=== PATIENT | male | born 1940 | race Caucasian/White ===

== ENCOUNTER 2016-08-31 17:12 | Emergency (ER) | payer MEDICARE, OTHER ==
[2016-08-31 17:48] VITALS: BP 149/76; TEMP 99.2; O2SAT 90
--- NOTE | 2016-08-31 18:06 | ED.PDOC ---
History of Present Illness - General Chief Complaint: Respiratory Problem Stated Complaint: cough, congestion Time Seen by Provider: 08/31/16 18:05 Source: patient, RN notes reviewed, Vital Signs reviewed Exam Limitations: no limitations - History of Present Illness Initial Comments: Patient stated that he had been having cough and congestion not getting better for the last 3 weeks.Has history of cad,chf dm. Uses home o2 but as needed. Timing/Duration: other - 3 weeks Improving Factors: nothing Worsening Factors: nothing Associated Symptoms: denies symptoms Allergies/Adverse Reactions: Allergies Hydromorphone [From Dilaudid] Allergy (Verified 08/31/16 17:46) Morphine Allergy (Verified 08/31/16 17:46) Tetanus Toxoid Allergy (Verified 08/31/16 17:46) Home Medications: Ambulatory Orders Albuterol Sulfate Nebs [Proventil Nebs] 2.5 mg INH QID 06/16/15 Arformoterol Tartrate [Brovana] 15 mcg IN BID 06/16/15 Atorvastatin Calcium [Lipitor] 20 mg PO DAILY 06/16/15 Fenofibrate [Tricor] 134 mg PO DAILY 06/16/15 Furosemide [Lasix] 40 mg PO DAILY 06/16/15 Glipizide 10 mg PO BID 06/16/15 Insulin Detemir [Levemir Pen] 60 unit SUBCU BID 06/16/15 Lisinopril [Prinivil] 20 mg PO BID 06/16/15 Meclizine HCl 25 mg PO BID 06/16/15 Potassium Chloride Tab [Micro-K] 20 meq PO DAILY 06/16/15 Tiotropium [place] Monohydrate [Spiriva Handihaler] 18 mcg IN DAILY 06/16/15 Triamcinolone 0.1% Oint [Kenalog 0.1% Ointment] 1 applic TOP BID 07/18/15 Albuterol Sulfate Nebs [Proventil Nebs] 2.5 mg NEB RTQID #0 vial 07/22/15 Aspirin [Aspirin Childrens] 81 mg PO DAILY #0 07/22/15 Benzonatate Perles [Tessalon Perles] 200 mg PO BID #30 cap 08/31/16 Doxycycline Hyclate 100 mg PO BID #20 cap 08/31/16 predniSONE [Prednisone] 10 mg PO BID #14 tab 08/31/16 Review of Systems - Review of Systems Constitutional: States: no symptoms reported EENTM: States: nose congestion Respiratory: States: short of breath Cardiology: States: no symptoms reported Gastrointestinal/Abdominal: States: no symptoms reported Genitourinary: States: no symptoms reported Musculoskeletal: States: no symptoms reported Skin: States: no symptoms reported Neurological: States: no symptoms reported Endocrine: States: no symptoms reported Past Medical History (General) - Patient Medical History Hx Seizures: No Hx Stroke: Yes Hx Dementia: Yes Hx Asthma: Yes Hx of COPD: Yes Hx Cardiac Disorders: Yes - [place] x1, heart failure Hx Congestive Heart Failure: Yes Hx Pacemaker: No Hx Hypertension: Yes Hx Diabetes: Yes Hx MRSA: No Surgical History: other - cardiac stent ,elbow ,hip, knee - Vaccination History Hx Tetanus, Diphtheria Vaccination: No Hx Influenza Vaccination: Yes - 2016 Hx Pneumococcal Vaccination: Yes - Social History Hx Tobacco Use: Yes Hx Alcohol Use: No Hx Substance Use: No Hx Physical Abuse: No Hx Emotional Abuse: No - Activities of Daily Living Patient Lives Alone: No - family Grooming Ability: Independent Eating (Feeding) Ability: Independent Toileting Ability: Independent - Female History Patient : No - Triage Comment ED Triage Comment: Pt lives with his adult sister. Family Medical History - Family History Mother Family History: No Known Living Status: Hx Family Asthma: Yes Hx Cardiac Disease: Yes Hx Family Diabetes: Yes Father Family History: No Known Physical Exam - Physical Exam General Appearance: Alert, Comfortable, No apparent distress Eye Exam: bilateral normal Ears, Nose, Throat: hearing grossly normal, normal pharynx, nasal congestion Neck: non-tender, full range of motion, supple Respiratory: chest non-tender, decreased breath sounds Cardiovascular/Chest: normal peripheral pulses, regular rate, rhythm, no edema, no gallop, no JVD, no murmur Peripheral Pulses: radial,right: 2+, radial,left: 2+ Gastrointestinal/Abdominal: normal bowel sounds, non tender, soft Back Exam: normal inspection, no CVA tenderness, no vertebral tenderness Extremity: normal range of motion, non-tender, pedal edema Neurologic: no motor/sensory deficits, alert, normal mood/affect, oriented x 3 Skin Exam: normal color, warm/dry Lymphatic: no adenopathy Progress - Progress Progress: 08/31/16 19:25 - Results/Orders Results/Orders: Laboratory Results WBC 8.1 K/mm3 (4.8-10.8) 08/31/16 18:30 RBC 5.37 M/mm3 (4.70-6.10) 08/31/16 18:30 Hgb 15.2 gm/dL (14.0-18.0) 08/31/16 18:30 Hct 46.1 % (42.0-52.0) 08/31/16 18:30 MCV 85.8 fl (80.0-94.0) 08/31/16 18:30 MCH 28.3 pg (27.0-31.0) 08/31/16 18:30 MCHC 33.0 g/dL (33.0-37.0) 08/31/16 18:30 RDW 15.7 % (11.5-14.5) H 08/31/16 18:30 Plt Count 284 K/mm3 (130-400) 08/31/16 18:30 MPV 8.4 fl (7.40-10.4) 08/31/16 18:30 Absolute Neuts (auto) 4.10 K/uL (1.8-6.8) 08/31/16 18:30 Absolute Lymphs (auto) 2.80 K/uL (1.0-3.4) 08/31/16 18:30 Absolute Monos (auto) 0.70 K/uL (0.2-0.8) 08/31/16 18:30 Absolute Eos (auto) 0.50 K/uL (0.0-0.4) H 08/31/16 18:30 Absolute Basos (auto) 0.10 K/uL (0.0-0.1) 08/31/16 18:30 Neutrophils % 50.8 % (42.0-78.0) 08/31/16 18:30 Lymphocytes % 34.2 % (20.0-50.0) 08/31/16 18:30 Monocytes % 8.0 % (2.0-9.0) 08/31/16 18:30 Eosinophils % 5.6 % (1.0-5.0) H 08/31/16 18:30 Basophils % 1.4 % (0.0-2.0) 08/31/16 18:30 - EKG/XRAY/CT XRAY: chest - patchy infiltrates Departure - Departure Clinical Impression: Pneumonia, organism unspecified Qualifiers: Laterality: bilateral Lung location: lower lobe of lung Qualifier Code: (J16.8 ) Pneumonia due to other specified infectious organisms Time of Disposition: 19:40 Disposition: Discharge to Home or Self Care Condition: Good Departure Forms: ED Discharge - Pt. Copy, Patient Portal Self Enrollment Prescriptions: Doxycycline Hyclate 100 mg PO BID #20 cap predniSONE [Prednisone] 10 mg PO BID #14 tab Benzonatate Perles [Tessalon Perles] 200 mg PO BID #30 cap Home Medications: Ambulatory Orders Albuterol Sulfate Nebs [Proventil Nebs] 2.5 mg INH QID 06/16/15 Arformoterol Tartrate [Brovana] 15 mcg IN BID 06/16/15 Atorvastatin Calcium [Lipitor] 20 mg PO DAILY 06/16/15 Fenofibrate [Tricor] 134 mg PO DAILY 06/16/15 Furosemide [Lasix] 40 mg PO DAILY 06/16/15 Glipizide 10 mg PO BID 06/16/15 Insulin Detemir [Levemir Pen] 60 unit SUBCU BID 06/16/15 Lisinopril [Prinivil] 20 mg PO BID 06/16/15 Meclizine HCl 25 mg PO BID 06/16/15 Potassium Chloride Tab [Micro-K] 20 meq PO DAILY 06/16/15 Tiotropium [place] Monohydrate [Spiriva Handihaler] 18 mcg IN DAILY 06/16/15 Triamcinolone 0.1% Oint [Kenalog 0.1% Ointment] 1 applic TOP BID 07/18/15 Albuterol Sulfate Nebs [Proventil Nebs] 2.5 mg NEB RTQID #0 vial 07/22/15 Aspirin [Aspirin Childrens] 81 mg PO DAILY #0 07/22/15 Benzonatate Perles [Tessalon Perles] 200 mg PO BID #30 cap 08/31/16 Doxycycline Hyclate 100 mg PO BID #20 cap 08/31/16 predniSONE [Prednisone] 10 mg PO BID #14 tab 08/31/16 Additional Instructions: RETURN TO EMERGENCY ROOM NEEDED
[2016-08-31] MEDS ORDERED: methylPREDNISolone SODIUM SUC 125 MG/2 ML VIAL IM ONE (18:21)
--- NOTE | 2016-08-31 19:12 | RAD ---
EXAM DESCRIPTION: Chest,2 Views CLINICAL HISTORY: 76 years Male cough COMPARISON: 05/29/2016. FINDINGS: The cardiomediastinal silhouette appears unremarkable. Patchy infiltrates are visualized in the mid and lower lungs greater on the right. Questionable minimal pleural effusions. No pneumothorax. IMPRESSION: Patchy infiltrates in the lower lungs greater in the right which could be from pneumonia. Follow-up is recommended. Electronically signed by: Reynold Grullon MD 08/31/2016 7:11 PM [employer]
[2016-08-31] MEDS ORDERED: AZITHROMYCIN 250 MG TAB PO ONE (19:38)
[2016-08-31] MEDS ORDERED: cefTRIAXone SODIUM 1 GM VIAL IM ONE (19:38)
[2016-08-31] MEDS ORDERED: LIDOCAINE 1% 10 ML VIAL INJ ONE (19:53)
--- NOTE | 2016-09-09 00:20 | RAD ---
EXAM DESCRIPTION: Chest,2 Views CLINICAL HISTORY: 76 years Male cough COMPARISON: 05/29/2016. FINDINGS: The cardiomediastinal silhouette appears unremarkable. Patchy infiltrates are visualized in the mid and lower lungs greater on the right. Questionable minimal pleural effusions. No pneumothorax. IMPRESSION: Patchy infiltrates in the lower lungs greater in the right which could be from pneumonia. Follow-up is recommended. Electronically signed by: Reynold Grullon MD 08/31/2016 7:11 PM [employer]
== END 2016-08-31 20:21 | disposition home or self-care (01) ==
LOC: ER 17:12
DX: J16.8 Pneumonia due to other specified infectious organisms (principal); I11.0 Hypertensive heart disease with heart failure; I50.9 Heart failure, unspecified; J44.9 Chronic obstructive pulmonary disease, unspecified; F03.90 Unspecified dementia, unspecified severity, without behavioral disturbance, psychotic disturbance, mood disturbance, and anxiety; Z86.73 Personal history of transient ischemic attack (TIA), and cerebral infarction without residual deficits; I25.2 Old myocardial infarction; Z79.82 Long term (current) use of aspirin; Z88.6 Allergy status to analgesic agent; Z88.7 Allergy status to serum and vaccine; Z79.899 Other long term (current) drug therapy; Z79.4 Long term (current) use of insulin; Z98.61 Coronary angioplasty status
CPT/HCPCS: 36415; 71020; 85025; J0696; J2930; Q0144

== ENCOUNTER 2017-02-26 09:03 | Inpatient (IN) | payer MEDICARE, OTHER ==
[2017-02-26] MEDS ORDERED: SODIUM CHLORIDE 0.9% 1000ML 1,000 ML IVS ONE ×2 (09:29→10:54)
--- NOTE | 2017-02-26 09:58 | ED.PDOC ---
History of Present Illness - General Chief Complaint: General Stated Complaint: laid on floor all night Time Seen by Provider: 02/26/17 09:43 Source: patient Exam Limitations: clinical condition - History of Present Illness Initial Comments: Patient presents after he fell out of his chair and was too weak to get up. He says this has happened before. He has IDDM. He feels generalized weakness and mild left hip pain. Patient cannot verbalize any other complaint. Timing/Duration: unsure Severity: mild Improving Factors: nothing Worsening Factors: nothing Associated Symptoms: denies symptoms Allergies/Adverse Reactions: Allergies Hydromorphone [From Dilaudid] Allergy (Verified 08/31/16 17:46) Morphine Allergy (Verified 08/31/16 17:46) Tetanus Toxoid Allergy (Verified 08/31/16 17:46) Home Medications: Ambulatory Orders Albuterol Sulfate Nebs [Proventil Nebs] 2.5 mg INH QID 06/16/15 Arformoterol Tartrate [Brovana] 15 mcg IN BID 06/16/15 Atorvastatin Calcium [Lipitor] 20 mg PO DAILY 06/16/15 Fenofibrate [Tricor] 134 mg PO DAILY 06/16/15 Furosemide [Lasix] 40 mg PO DAILY 06/16/15 Glipizide 10 mg PO BID 06/16/15 Insulin Detemir [Levemir Pen] 60 unit SUBCU BID 06/16/15 Lisinopril [Prinivil] 20 mg PO BID 06/16/15 Meclizine HCl 25 mg PO BID 06/16/15 Potassium Chloride Tab [Micro-K] 20 meq PO DAILY 06/16/15 Tiotropium [place] Monohydrate [Spiriva Handihaler] 18 mcg IN DAILY 06/16/15 Triamcinolone 0.1% Oint [Kenalog 0.1% Ointment] 1 applic TOP BID 07/18/15 Albuterol Sulfate Nebs [Proventil Nebs] 2.5 mg NEB RTQID #0 vial 07/22/15 Aspirin [Aspirin Childrens] 81 mg PO DAILY #0 07/22/15 Benzonatate Perles [Tessalon Perles] 200 mg PO BID #30 cap 08/31/16 Doxycycline Hyclate 100 mg PO BID #20 cap 08/31/16 predniSONE 10 mg PO BID #14 tab 08/31/16 Review of Systems - Review of Systems Constitutional: States: see HPI EENTM: States: no symptoms reported Respiratory: States: no symptoms reported Cardiology: States: no symptoms reported Gastrointestinal/Abdominal: States: no symptoms reported Genitourinary: States: no symptoms reported Musculoskeletal: States: see HPI Skin: States: no symptoms reported Neurological: States: no symptoms reported Endocrine: States: no symptoms reported Hematologic/Lymphatic: States: no symptoms reported Unable to Obtain Due To: clinical condition Past Medical History (General) - Patient Medical History Hx Seizures: No Hx Stroke: Yes Hx Dementia: Yes Hx Asthma: Yes Hx of COPD: Yes Hx Cardiac Disorders: Yes - [place] x1, heart failure Hx Congestive Heart Failure: Yes Hx Pacemaker: No Hx Hypertension: Yes Hx Diabetes: Yes Hx MRSA: No - Vaccination History Hx Tetanus, Diphtheria Vaccination: No Hx Influenza Vaccination: Yes Hx Pneumococcal Vaccination: Yes - Social History Hx Tobacco Use: Yes Hx Alcohol Use: No Hx Substance Use: No Hx Physical Abuse: No Hx Emotional Abuse: No - Female History Patient : No Family Medical History - Family History Mother Family History: No Known Living Status: Hx Family Asthma: Yes Hx Cardiac Disease: Yes Hx Family Diabetes: Yes Father Family History: No Known Physical Exam - Physical Exam General Appearance: No apparent distress Eye Exam: bilateral normal Ears, Nose, Throat: normal ENT inspection Neck: non-tender, full range of motion, supple Respiratory: lungs clear Cardiovascular/Chest: regular rate, rhythm Gastrointestinal/Abdominal: normal bowel sounds, non tender, soft Neurologic: scrum product owner II-XII nml as tested, no motor/sensory deficits Skin Exam: normal color Progress - Progress Progress: Presenting blood glucose wsa 818. No ketones in the urine. Patient was given a bolus of 10 units human insulin and one liter NS as well as 10 units per hour human insulin. Original potassium was 5.8. Follow up potassium was 4.7 so 20 meq potassium chloride over 2 hours was started. Patient was still hyperosmolar so NS was continued. Once glucose was 248, D5 NS with 20 meq potassium chloride at 250 ml/hour was started. Insulin drip was stopped and 10 units human insulin SQ was given and patient admitted to the floor. 02/26/17 15:05 Laboratory Tests 02/26/17 02/26/17 02/26/17 09:35 09:35 11:05 WBC 9.5 RBC 5.15 Hgb 15.2 Hct 46.4 MCV 90.1 MCH 29.4 MCHC 32.6 L RDW 13.0 Plt Count 295 MPV 9.9 Absolute Neuts (auto) 6.40 Absolute Lymphs (auto) 2.00 Absolute Monos (auto) 0.80 Absolute Eos (auto) 0.20 Absolute Basos (auto) 0.10 Neutrophils % 67.4 Lymphocytes % 21.0 Monocytes % 8.2 Eosinophils % 2.0 Basophils % 1.4 Sodium 129 L 130 L Potassium 5.8 H 4.7 Chloride 92 L 96 L Carbon Dioxide 21 21 Anion Gap 21.8 H 17.7 BUN 100 H 94 H Creatinine 3.09 H 2.86 H BUN/Creatinine Ratio 32.4 H 32.9 H POC Glucose Random Glucose 818 H* 733 H* Serum Osmolality 330.5 H* Not Reportable Calcium 9.6 9.1 Total Bilirubin 1.1 H AST 18 ALT 14 Alkaline Phosphatase 160 H Serum Total Protein 7.8 Albumin 3.9 Globulin 3.9 H Albumin/Globulin Ratio 1.0 L Urine Color Urine Appearance Urine pH Ur Specific [place] Urine Protein Urine Glucose (UA) Urine Ketones Urine Blood Urine Nitrite Urine Bilirubin Urine Urobilinogen Ur Leukocyte Esterase Urine RBC Urine WBC Ur Epithelial Cells Amorphous Sediment Urine Bacteria 02/26/17 02/26/17 02/26/17 11:06 12:12 13:50 WBC RBC Hgb Hct MCV MCH MCHC RDW Plt Count MPV Absolute Neuts (auto) Absolute Lymphs (auto) Absolute Monos (auto) Absolute Eos (auto) Absolute Basos (auto) Neutrophils % Lymphocytes % Monocytes % Eosinophils % Basophils % Sodium 134 L 136 Potassium 4.8 4.5 Chloride 99 L 102 Carbon Dioxide 22 21 Anion Gap 17.8 17.5 BUN 89 H 89 H Creatinine 2.74 H 2.57 H BUN/Creatinine Ratio 32.5 H 34.6 H POC Glucose Random Glucose 521 H* 355 H D Serum Osmolality 318.6 H 313.5 H Calcium 9.1 9.3 Total Bilirubin AST ALT Alkaline Phosphatase Serum Total Protein Albumin Globulin Albumin/Globulin Ratio Urine Color Yellow Urine Appearance Clear Urine pH 5.0 Ur Specific [place] <= 1.005 Urine Protein Negative Urine Glucose (UA) 500 H Urine Ketones Negative Urine Blood Trace-lysed H Urine Nitrite Negative Urine Bilirubin Negative Urine Urobilinogen 0.2 Ur Leukocyte Esterase Negative Urine RBC 0-1 Urine WBC 0 Ur Epithelial Cells 0-1 Amorphous Sediment Trace Urine Bacteria 0 02/26/17 14:46 WBC RBC Hgb Hct MCV MCH MCHC RDW Plt Count MPV Absolute Neuts (auto) Absolute Lymphs (auto) Absolute Monos (auto) Absolute Eos (auto) Absolute Basos (auto) Neutrophils % Lymphocytes % Monocytes % Eosinophils % Basophils % Sodium Potassium Chloride Carbon Dioxide Anion Gap BUN Creatinine BUN/Creatinine Ratio POC Glucose 248 H Random Glucose Serum Osmolality Calcium Total Bilirubin AST ALT Alkaline Phosphatase Serum Total Protein Albumin Globulin Albumin/Globulin Ratio Urine Color Urine Appearance Urine pH Ur Specific [place] Urine Protein Urine Glucose (UA) Urine Ketones Urine Blood Urine Nitrite Urine Bilirubin Urine Urobilinogen Ur Leukocyte Esterase Urine RBC Urine WBC Ur Epithelial Cells Amorphous Sediment Urine Bacteria Departure - Departure Clinical Impression: Hyperglycemia Clinical Impression: (Ruled Out): Type 1 diabetes mellitus with hyperosmolarity without nonketotic hyperglycemic hyperosmolar coma Disposition: Admit Patient Condition: Good Departure Forms: ED Discharge - Pt. Copy, Patient Portal Self Enrollment Diet: other - as per hospitalist Activity: as per physical therapy Referrals: Brian Yi MD [Primary Care Provider] - 1-2 Weeks Home Medications: Ambulatory Orders Albuterol Sulfate Nebs [Proventil Nebs] 2.5 mg INH QID 06/16/15 Arformoterol Tartrate [Brovana] 15 mcg IN BID 06/16/15 Atorvastatin Calcium [Lipitor] 20 mg PO DAILY 06/16/15 Fenofibrate [Tricor] 134 mg PO DAILY 06/16/15 Furosemide [Lasix] 40 mg PO DAILY 06/16/15 Glipizide 10 mg PO BID 06/16/15 Insulin Detemir [Levemir Pen] 60 unit SUBCU BID 06/16/15 Lisinopril [Prinivil] 20 mg PO BID 06/16/15 Meclizine HCl 25 mg PO BID 06/16/15 Potassium Chloride Tab [Micro-K] 20 meq PO DAILY 06/16/15 Tiotropium [place] Monohydrate [Spiriva Handihaler] 18 mcg IN DAILY 06/16/15 Triamcinolone 0.1% Oint [Kenalog 0.1% Ointment] 1 applic TOP BID 07/18/15 Albuterol Sulfate Nebs [Proventil Nebs] 2.5 mg NEB RTQID #0 vial 07/22/15 Aspirin [Aspirin Childrens] 81 mg PO DAILY #0 07/22/15 Benzonatate Perles [Tessalon Perles] 200 mg PO BID #30 cap 08/31/16 Doxycycline Hyclate 100 mg PO BID #20 cap 08/31/16 predniSONE 10 mg PO BID #14 tab 08/31/16
--- NOTE | 2017-02-26 10:14 | RAD ---
EXAM DESCRIPTION: Hip,Left 2 Views CLINICAL HISTORY: 76 years,Male,pain-slid out of recliner onto floor COMPARISON: None FINDINGS: The left hip demonstrates no fractures or dislocations.. The joint spaces mildly loss in the axial direction with mild ossified changes.. The included pelvis not seen well but otherwise unremarkable.. There is large bony overgrowth and what it appears be old fracture or avulsion of the left ischio tuberosity. Which is unchanged. IMPRESSION: Mild left hip osteoarthritic changes with no acute findings. Old fracture or avulsion fracture of the left ischio tuberosity stable. Electronically signed by: Tomi Avitia MD 02/26/2017 10:13 AM CDT
[2017-02-26] MEDS ORDERED: INSULIN, REG.(HUMAN) 100 U/ML VIAL IV ONE (10:24)
[2017-02-26] MEDS ORDERED: INSULIN, REG.(HUMAN) 250 UNITS in SODIUM CHL 0.9% 250ML (AVIVA) 247.5 ML IVPB SCH ×2 (10:30)
[2017-02-26] MEDS ORDERED: SODIUM CHL 0.9% 250ML (AVIVA) 250 ML IVPB ONE (10:37)
[2017-02-26] MEDS ORDERED: KCL 20MEQ/WATER FOR INJ 100ML 20 MEQ in PREMIX BAG 1 BAG IVPB ONE ×2 (11:29→14:52)
[2017-02-26] MEDS ORDERED: KCL 20MEQ/WATER FOR INJ 100ML 100 ML IVPB ONE (11:35)
[2017-02-26] MEDS ORDERED: SODIUM CHLORIDE 0.9% 1000ML 1,000 ML IVS PRN (12:53)
[2017-02-26] MEDS ORDERED: KCL 20MEQ/D5NS 1,000 ML IVS PRN (14:56)
[2017-02-26] MEDS ORDERED: KCL 20MEQ/D5NS 1,000 ML IVS ONE (14:57)
[2017-02-26] MEDS ORDERED: INSULIN, REG.(HUMAN) 100 U/ML VIAL SUBCU ONE (14:57)
--- NOTE | 2017-02-26 15:57 | HP ---
SUPERVISING PHYSICIAN: Zeke Gonzalez M.D. CHIEF COMPLAINT: Weakness and high blood sugars. HISTORY OF PRESENT ILLNESS: The patient presented to the Emergency Room today after he was found down on most of the night. He has poorly controlled diabetes mellitus type 2. Yesterday, he felt extremely weak and his blood sugar was very elevated. He said he couldn't walk or he couldn't talk yesterday and ended up in the floor. He came to the Emergency Room today and his CBC was basically within normal limits, but his chemistry showed sodium 129 , potassium 5.8, chloride 92, carbon dioxide 21 and anion gap 21.8, BUN 100, creatinine 3.09. Random glucose was 818 with serum osmolality 330.5. Bilirubin 1.1, alkaline phosphatase 160, globulin 3.9 and albumin 1.0. He was given a total of 4 liters of fluids in the Emergency Room and started on an insulin drip. Over the next several hours his blood sugar came down to 733, 521 , 355 and finally at 248. His anion gap normalized to 17.5 on admission to the floor as well as his BUN was 89 and creatinine was 2.57. His fluids were changed to D5 NS with 20 of K at 1500 and his insulin drip was stopped. He was given 10 units of subcutaneous insulin and he was sent to the floor. PAST MEDICAL HISTORY: 1. Congestive heart failure of unknown etiology. 2. Coronary artery disease. 3. Dementia. 4. Diabetes mellitus type 2 poorly controlled. 5. Essential hypertension. 6. Hyperlipidemia. 7. Peripheral vascular disease. 8. DEMARCO. 9. Idiopathic pulmonary fibrosis. 10. History of myocardial infarction. 11. Chronic obstructive pulmonary disease. 12. Benign prostatic hypertrophy. PAST SURGICAL HISTORY: 1. Right hip replacement. 2. Bilateral elbow surgeries. 3. Bilateral knee replacements. OUTPATIENT MEDICATIONS: Per the EMR and awaiting verification. ALLERGIES: NO KNOWN DRUG ALLERGIES. SOCIAL HISTORY: He is . He lives with his sister. He has 2 children. He quit smoking about 20 years ago. He denies any ETOH or illicit drug use. REVIEW OF SYSTEMS: Positive for fatigue. Denies fever or weight changes. HEENT: Denies sinus symptoms, ear pain, vision changes or sore throat. RESPIRATORY: Denies shortness of breath, coughing or wheezing. CARDIAC: Denies chest pains, palpitations or tachycardia. ABDOMEN: Denies abdominal pain, nausea or vomiting, diarrhea or constipation. GENITOURINARY: Denies hematuria, polyuria or dysuria. MUSCULOSKELETAL: He complains of mild left hip pain. NEUROLOGIC: Complains of weakness and some dizziness. Denies seizures. PHYSICAL EXAMINATION: VITAL SIGNS: He is afebrile, heart rate has gone as high as 96 and is now 82, blood pressure 100/66, respiratory rate 18, O2 sat is 94% on 3 liters nasal cannula. GENERAL: This is a 76 year-old male patient who is lying in his hospital bed. He is in no acute distress. HEENT: Normocephalic and atraumatic. Pupils are equal and reactive. Oropharynx is clear. Oral mucous membrane are dry. NECK: Supple without mass. CHEST: Clear to auscultation bilaterally, somewhat diminished at the bases. There is equal rise and fall of the chest with inspiration and expiration. CARDIOVASCULAR: Regular rate and rhythm. ABDOMEN: Rounded, slightly firm but non-tender. Bowel sounds are positive. EXTREMITIES: No cyanosis, clubbing or edema. SKIN: Slightly poor skin turgor with some mild tenting, otherwise it is warm and dry. NEUROLOGIC: He is awake, alert and oriented times three. LABORATORY: As per the History of Present Illness. Hip x-ray shows mild left hip osteoarthritic changes with no acute findings and an old fracture or avulsion fracture of the left ischial tuberosity, but that is stable. All other labs and films have been reviewed via the EMR. ASSESSMENT: 1. Hyperosmolar hyperglycemic state. 2. Elevated blood glucose of 818 on admission. 3. Dehydration. 4. Acute on chronic renal failure. 5. Diabetes mellitus type 2 uncontrolled. 6. Chronic obstructive pulmonary disease. 7. Hypertension. 8. Hyperlipidemia. PLAN: We will admit the patient to the hospital. At this point I am going to do every 4 hour BMPs with every 4 hour Accu Cheks and sliding scale coverage. Will change his fluid as his electrolytes indicate. Will do a hemoglobin A1c as well as restart his home medicines with the exception of his Lasix. Will give him breathing treatments. I have ordered some AM labs. Restart his regular insulin tomorrow after he is well hydrated. He is presently on D5 half NS with 20 of potassium at 200. We will continue to monitor him closely and follow as needed. Dr. Gonzalez is the collaborating physician available for consultation. [facility][id number]
[2017-02-26] MEDS ORDERED: KCL 20MEQ/D5 1/2NS 1,000 ML IVS PRN (17:16)
[2017-02-26] MEDS ORDERED: GLUCAGON INJ 1 MG VIAL SUBCU PRN (17:25)
[2017-02-26] MEDS ORDERED: DEXTROSE 50% 25 GM/50 ML SYG IV PRN (17:25)
[2017-02-26] MEDS ORDERED: KCL 20MEQ/D5 1/2NS 1,000 ML IVS ONE (17:30)
[2017-02-26] MEDS ORDERED: INSULIN LISPRO 100 UNITS/ML PEN SUBCU SCH (18:00)
[2017-02-26] MEDS ORDERED: INSULIN LISPRO 100 UNITS/ML PEN SUBCU ONE (18:51)
[2017-02-26] MEDS ORDERED: DOCUSATE SODIUM 100 MG CAP PO PRN (19:38)
[2017-02-26] MEDS ORDERED: SODIUM CHLORIDE 0.9% (FLUSH) 10 ML SYG IV PRN (19:43)
[2017-02-26] MEDS ORDERED: HYDROcodone 5MG/APAP 325MG 1 EA TAB PO PRN (19:45)
[2017-02-26] MEDS ORDERED: ALBUTEROL SULFATE 2.5 MG/3 ML VIAL NEB PRN (19:45)
[2017-02-26] MEDS ORDERED: ONDANSETRON INJ 4 MG/2 ML VIAL IV PRN (19:45)
[2017-02-26] MEDS ORDERED: ENOXAPARIN SODIUM 40 MG/0.4 ML SYG SUBCU SCH (20:00)
[2017-02-26] MEDS ORDERED: PANTOPRAZOLE SODIUM IV 40 MG VIAL IV SCH (20:00)
[2017-02-26] MEDS: IV SET AND CAP CHANGE INJ INJ SCH (20:23)
[2017-02-26] MEDS: INSULIN LISPRO 100 UNITS/ML PEN SUBCU SCH (20:23)
[2017-02-26] MEDS ORDERED: ENOXAPARIN SODIUM 30 MG/0.3 ML SYG SUBCU SCH (20:30)
[2017-02-26] MEDS: LISINOPRIL 10 MG TAB PO SCH (20:58)
[2017-02-26] MEDS: GABAPENTIN 300 MG CAP PO SCH (20:58)
[2017-02-26] MEDS: MECLIZINE HCL 12.5 MG TAB PO SCH (20:58)
[2017-02-26] MEDS: ATORVASTATIN 20 MG TAB PO SCH (20:58)
[2017-02-26] MEDS: POTASSIUM CHLORIDE 10 MEQ TAB PO SCH (20:58)
[2017-02-26] MEDS ORDERED: FENOFIBRATE 134 MG PO SCH (21:00)
[2017-02-26] MEDS: ALBUTEROL SULFATE 2.5 MG/3 ML VIAL NEB SCH (22:50)
[2017-02-26] MEDS ORDERED: SODIUM CHLORIDE 0.9% 1000ML 1,000 ML ONE (22:56)
[2017-02-26] MEDS: SODIUM CHLORIDE 0.9% 1000ML 1,000 ML IVS PRN (22:58)
[2017-02-27] MEDS: INSULIN LISPRO 100 UNITS/ML PEN SUBCU SCH ×5 (00:15→21:30)
[2017-02-27] MEDS ORDERED: SODIUM CHLORIDE 0.9% 1000ML 1,000 ML ONE (03:53)
[2017-02-27] MEDS: SODIUM CHLORIDE 0.9% 1000ML 1,000 ML IVS PRN (03:55)
[2017-02-27] MEDS: POTASSIUM CHLORIDE 10 MEQ TAB PO SCH (08:30)
[2017-02-27] MEDS: LISINOPRIL 10 MG TAB PO SCH ×2 (08:30→20:40)
[2017-02-27] MEDS: ASPIRIN (CHEWABLE) 81 MG TAB PO SCH (08:30)
[2017-02-27] MEDS ORDERED: KCL 20MEQ/D5 1/2NS 1,000 ML IVS PRN (08:46)
[2017-02-27] MEDS: ALBUTEROL SULFATE 2.5 MG/3 ML VIAL NEB SCH ×4 (09:01→20:40)
[2017-02-27] MEDS: PANTOPRAZOLE SODIUM TAB 40 MG PO SCH (12:30)
[2017-02-27] MEDS: SODIUM CHLORIDE 0.9% (FLUSH) 10 ML SYG IV SCH ×2 (12:30→20:41)
[2017-02-27] MEDS ORDERED: SODIUM CHLORIDE 0.9% 1000ML 1,000 ML IVS PRN (16:42)
[2017-02-27] MEDS ORDERED: POTASSIUM CHLORIDE 10 MEQ TAB PO SCH (17:00)
[2017-02-27] MEDS: TIOTROPIUM INHALER INH SCH (17:35)
[2017-02-27] MEDS: INSULIN GLARGINE 80 UNIT SC SCH (17:55)
[2017-02-27] MEDS ORDERED: FENOFIBRIC ACID 135 MG CAP ONE (19:29)
[2017-02-27] MEDS ORDERED: ENOXAPARIN SODIUM 40 MG/0.4 ML SYG SUBCU ONE (19:30)
--- NOTE | 2017-02-27 19:33 | PN ---
DATE: 02/27/17 SUPERVISING PHYSICIAN: Zeke Gonzalez M.D. SUBJECTIVE: The patient is sitting up in his hospital bed. He denies any chest pain, nausea, vomiting or shortness of breath. He does complain that he cannot walk and he still continues to feel weak. He tolerated his food without any problem. OBJECTIVE: VITAL SIGNS: He is afebrile, heart rate 96, blood pressure 146/74, respiratory rate 18, O2 sat is 94% on 3 liters nasal cannula. RESPIRATORY: Clear to auscultation bilaterally. CARDIAC: Regular rate and rhythm. ABDOMEN: Rounded, it is slightly firm but non-tender. Bowel sounds are positive. EXTREMITIES: No cyanosis, clubbing or edema. NEUROLOGIC: He is awake, alert and oriented times three. LABORATORY: WBCs are 7.4, [id number], hematocrit 38.3. Sodium has ranged between 139 and 196, potassium has ranged between 5 and 5.5, chloride 107, carbon dioxide 22, BUN at his 4:00 PM lab result is 58 and creatinine 1.84, glucose has run between 248 and 515, his last one being 515. Serum osmolality 311.4. All other labs and films have been reviewed via the EMR. ASSESSMENT: 1. Hyperosmolar hyperglycemic state. 2. Elevated blood glucose of 818 on admission. 3. Dehydration. 4. Acute on chronic renal failure. 5. Diabetes mellitus type 2, uncontrolled. 6. Chronic obstructive pulmonary disease. 7. Hypertension. 8. Hyperlipidemia. PLAN: We will continue present supportive care. His blood glucoses have been up and down over the last 24 hours. He continues to be a little dehydrated. He has received about 7 liters of fluids but I will give him 1 more liter of fluids and we will give his Toujeo long acting insulin this evening and restart it in the morning routinely as he takes it at home. I am also going to give him 15 units of NovoLog insulin this evening and will recheck his BMP at 2100. His home medications have been restarted. I will order physical therapy tomorrow to evaluate his strength as he says he cannot walk. Will hopefully be able to discharge him home with close followup with Dr. Yi once his electrolytes have been corrected and his insulin has been adjusted. Dr. Gonzalez is the collaborating physician and available for consultation. #[id number] and [id number]
[2017-02-27] MEDS: ATORVASTATIN 20 MG TAB PO SCH (20:40)
[2017-02-27] MEDS: MECLIZINE HCL 12.5 MG TAB PO SCH (20:40)
[2017-02-27] MEDS: ENOXAPARIN SODIUM 40 MG/0.4 ML SYG SUBCU SCH (20:40)
[2017-02-27] MEDS: GABAPENTIN 300 MG CAP PO SCH (20:40)
[2017-02-27] MEDS: FENOFIBRIC ACID 135 MG CAP PO SCH (20:41)
[2017-02-28] MEDS ORDERED: INSULIN LISPRO 100 UNITS/ML PEN SUBCU ONE (00:11)
[2017-02-28] MEDS: PANTOPRAZOLE SODIUM TAB 40 MG PO SCH (06:00)
[2017-02-28] MEDS: TIOTROPIUM INHALER INH SCH (08:15)
[2017-02-28] MEDS: ALBUTEROL SULFATE 2.5 MG/3 ML VIAL NEB SCH ×4 (08:15→19:58)
[2017-02-28] MEDS: INSULIN LISPRO 100 UNITS/ML PEN SUBCU SCH ×4 (08:55→20:51)
[2017-02-28] MEDS: ASPIRIN (CHEWABLE) 81 MG TAB PO SCH (08:58)
[2017-02-28] MEDS: LISINOPRIL 10 MG TAB PO SCH ×2 (08:58→20:52)
[2017-02-28] MEDS: INSULIN GLARGINE 80 UNIT SC SCH (08:59)
[2017-02-28] MEDS: SODIUM CHLORIDE 0.9% (FLUSH) 10 ML SYG IV SCH ×2 (09:00→20:52)
--- NOTE | 2017-02-28 18:12 | PN ---
DATE: 02/28/17 SUPERVISING PHYSICIAN: Zeke Gonzalez M.D. SUBJECTIVE: The patient is sitting on the side of his bed. He just had his bath. He has had no complaints of nausea, vomiting, diarrhea or constipation. He actually feels much improved today. I had a discussion at length with the Rug Touch Up Painter. We will consider senior care placement after discharge. OBJECTIVE: VITAL SIGNS: He is afebrile, heart rate 93, blood pressure 123/70, respiratory rate 16, O2 sat is 94% on 3 liters nasal cannula. RESPIRATORY: Essentially clear to auscultation bilaterally. CARDIAC: Regular rate and rhythm. ABDOMEN: Rounded, slightly firm but non-tender. Bowel sounds are positive. EXTREMITIES: No cyanosis, clubbing or edema. NEUROLOGIC: He is awake , alert and oriented times three. LABORATORY: WBCs are 8.5, hemoglobin and hematocrit are stable at 12.9 and 39.2. Electrolytes are within normal limits with BUN and creatinine improving to 42 and 1.64. Glucose has run between 166 and 536. Serum osmolality is now 299.2. Hemoglobin A1c is 14.5. All other lab and films have been reviewed via the EMR. ASSESSMENT: 1. Hyperosmolar hyperglycemic state that has improved after 8 plus liters of fluids and insulin administration. 2. Elevated blood glucose of 818 on admission. 3. Diabetes mellitus type 2, uncontrolled with a hemoglobin A1c of 14.5. 4. Dehydration that has resolved. 5. Acute on chronic renal failure that has improved. 6. Chronic obstructive pulmonary disease. 7. Hypertension. 8. Hyperlipidemia. PLAN: We will continue present supportive care. I have ordered routine lab for in the morning. Jaylyn Pearson, our Rug Touch Up Painter, spoke to the patient at length about discharge to a senior care, and given his current physical state it probably would benefit him to be in a termite treater care facility. He has been in [facility] in the past. At this point, I believe that is where he would like to go. There may have to be some adjustment to a sliding scale or his long-acting insulin as his last blood sugar was 302, but we will monitor that closely. Encourage good pulmonary hygiene. He has walked in the halls several times with Physical Therapy. We will monitor his closely and follow as needed. Dr. Gonzalez is the collaborating physician and available for consultation. #[id number] [facility]
[2017-02-28] MEDS: ATORVASTATIN 20 MG TAB PO SCH (20:51)
[2017-02-28] MEDS: ENOXAPARIN SODIUM 40 MG/0.4 ML SYG SUBCU SCH (20:51)
[2017-02-28] MEDS: MECLIZINE HCL 12.5 MG TAB PO SCH (20:51)
[2017-02-28] MEDS: GABAPENTIN 300 MG CAP PO SCH (20:52)
[2017-02-28] MEDS: FENOFIBRIC ACID 135 MG CAP PO SCH (20:52)
[2017-03-01] MEDS: PANTOPRAZOLE SODIUM TAB 40 MG PO SCH (06:08)
[2017-03-01] MEDS: INSULIN LISPRO 100 UNITS/ML PEN SUBCU SCH ×5 (07:11→21:10)
[2017-03-01] MEDS: TIOTROPIUM INHALER INH SCH (08:35)
[2017-03-01] MEDS: ALBUTEROL SULFATE 2.5 MG/3 ML VIAL NEB SCH ×4 (08:35→19:30)
[2017-03-01] MEDS: SODIUM CHLORIDE 0.9% (FLUSH) 10 ML SYG IV SCH ×2 (08:38→20:42)
[2017-03-01] MEDS: ASPIRIN (CHEWABLE) 81 MG TAB PO SCH (08:38)
[2017-03-01] MEDS: LISINOPRIL 10 MG TAB PO SCH ×2 (08:38→20:41)
[2017-03-01] MEDS: INSULIN GLARGINE 80 UNIT SC SCH (08:39)
--- NOTE | 2017-03-01 20:12 | PN ---
DATE: 03/01/17 SUPERVISING PHYSICIAN: Zeke Gonzalez M.D. SUBJECTIVE: The patient is sitting on the edge of the bed. Reports that he continues to have improvements. He has not had any nausea or vomiting. He remains afebrile. OBJECTIVE: VITAL SIGNS: Temperature 98.7, pulse 94, blood pressure 103/64, respirations 18, satting 99% on nasal cannula at 2 liters at rest. I's and O's show a negative balance of 280 with 1345 in, 1625 out. Weight 100.9 kg. CHEST : Lungs are clear to auscultation bilaterally. HEART: Regular rate and rhythm. ABDOMEN: Soft, non-tender Positive bowel sounds. EXTREMITIES: No clubbing, cyanosis or edema. NEUROLOGIC: He is alert and oriented times three. LABORATORY: White count 9.2, hemoglobin 13.3, hematocrit 39.4, platelet count 271,000. Differential shows to be without a left shift. Chemistries show normal electrolytes with potassium 4.6, BUN remains elevated at 34 although showing continued improvement. Creatinine is down to 1.49. Blood sugars are showing a little better control at being since 5:00 this morning 140 to 290, it was showing high 300s the previous 12 hours showing some stabilization. Serum osmolality is 291 which is showing continuation of improvement from admission. Liver functions show to be within normal limits. ASSESSMENT: 1. Hyperosmolar hyperglycemic state showing continuation of improvement after aggressive fluid management and insulin regimen with initial blood sugar on admission at 818, now showing to be stable needing further management. 2. Diabetes mellitus type 2, uncontrolled as noted with hemoglobin A1c of 14.5. 3. Severe dehydration secondary to #1. 4. Acute on chronic renal failure from prerenal azotemia state secondary to #1 showing good improvement after IV fluids. 5. Chronic obstructive pulmonary disease. 6. Hypertension. 7. Hyperlipidemia. PLAN: Will continue to monitor blood sugars and adjust his insulin regimen as needed. He is taking adequate p.o. fluids at this point. We are awaiting final placement at [facility] which is in final planning stages with anticipation of discharging Friday. Will continue with aggressive pulmonary hygiene and physical therapy. Until discharge, will continue to monitor and treat appropriately. [facility][id number] [facility]
[2017-03-01] MEDS: GABAPENTIN 300 MG CAP PO SCH (20:42)
[2017-03-01] MEDS: FENOFIBRIC ACID 135 MG CAP PO SCH (20:42)
[2017-03-01] MEDS: MECLIZINE HCL 12.5 MG TAB PO SCH (20:42)
[2017-03-01] MEDS: ENOXAPARIN SODIUM 40 MG/0.4 ML SYG SUBCU SCH (20:43)
[2017-03-01] MEDS: ATORVASTATIN 20 MG TAB PO SCH (20:43)
[2017-03-01] MEDS: IV SET AND CAP CHANGE INJ INJ SCH (21:14)
[2017-03-02] MEDS: PANTOPRAZOLE SODIUM TAB 40 MG PO SCH (05:57)
[2017-03-02] MEDS: INSULIN LISPRO 100 UNITS/ML PEN SUBCU SCH ×7 (07:15→20:55)
[2017-03-02] MEDS: LISINOPRIL 10 MG TAB PO SCH ×2 (08:35→20:52)
[2017-03-02] MEDS: SODIUM CHLORIDE 0.9% (FLUSH) 10 ML SYG IV SCH ×2 (08:35→20:51)
[2017-03-02] MEDS: ASPIRIN (CHEWABLE) 81 MG TAB PO SCH (08:35)
[2017-03-02] MEDS: INSULIN GLARGINE 80 UNIT SC SCH (08:36)
[2017-03-02] MEDS: TIOTROPIUM INHALER INH SCH (08:39)
[2017-03-02] MEDS: ALBUTEROL SULFATE 2.5 MG/3 ML VIAL NEB SCH ×4 (08:39→20:33)
--- NOTE | 2017-03-02 13:58 | PN ---
DATE: 03/02/17 SUBJECTIVE: The patient remains afebrile. He has had no nausea, vomiting, diarrhea. He has been encouraged to ambulate if possible, at least get to the bedside chair for meals. OBJECTIVE: VITAL SIGNS: Temperature 97.6, pulse 87, blood pressure 124/74, respirations 18 , saturation 98% on nasal cannula at rest. I&O: negative balance of 350 with 1050 in and 1400 out. He has had several bowel movements. Weight 100.7 kg. CHEST: Lungs clear to auscultation. HEART: Regular rate and rhythm. ABDOMEN: Obese but soft with positive bowel sounds, non-tender. EXTREMITIES: No cyanosis, clubbing, or edema. NEUROLOGIC: Alert and oriented x 3 LABORATORY: Chemistries today show normal electrolytes with potassium 3.9, BUN 32, continues to show improvement with creatinine now stabilized at 1.5. Blood sugars still remain elevated but are becoming better controlled ranging from 127 to 330. Calcium 8.8. ASSESSMENT: 1. Hyperosmolar hyperglycemic state on admission requiring aggressive fluid management and insulin regimen modification with initial blood sugar on admission at 818, showing better stabilization of blood sugars with continued needing further management. 2. Diabetes mellitus type 2, uncontrolled as noted with hemoglobin A1c of 14.5. 3. Severe dehydration secondary to #1 resolved with aggressive fluid management. 4. Acute on chronic renal failure from prerenal azotemia state secondary to #1 and underlying dehydration showing continued improvement and stabilization of creatinine after IV fluid replacement and better control of blood sugars. 5. Chronic obstructive pulmonary disease, stable. 6. Hypertension. 7. Hyperlipidemia. . PLAN: The patient's blood sugar is still elevated. I did add 5 units of insulin AC as well as sliding scale along with his daily insulin regimen to include Toujeo. Anticipate he will be discharged in the morning to [facility] once those arrangements have been finalized. Until then, we will continue to monitor and treat appropriately. #[id number] [facility]
[2017-03-02] MEDS: ATORVASTATIN 20 MG TAB PO SCH (20:52)
[2017-03-02] MEDS: MECLIZINE HCL 12.5 MG TAB PO SCH (20:52)
[2017-03-02] MEDS: ENOXAPARIN SODIUM 40 MG/0.4 ML SYG SUBCU SCH (20:52)
[2017-03-02] MEDS: FENOFIBRIC ACID 135 MG CAP PO SCH (20:52)
[2017-03-02] MEDS: GABAPENTIN 300 MG CAP PO SCH (20:52)
[2017-03-03] MEDS: PANTOPRAZOLE SODIUM TAB 40 MG PO SCH (06:07)
[2017-03-03] MEDS: INSULIN LISPRO 100 UNITS/ML PEN SUBCU SCH ×4 (08:37→11:29)
[2017-03-03] MEDS: INSULIN GLARGINE 80 UNIT SC SCH (09:00)
[2017-03-03] MEDS: LISINOPRIL 10 MG TAB PO SCH (09:15)
[2017-03-03] MEDS: ASPIRIN (CHEWABLE) 81 MG TAB PO SCH (09:16)
[2017-03-03] MEDS: SODIUM CHLORIDE 0.9% (FLUSH) 10 ML SYG IV SCH (09:16)
[2017-03-03 15:00] VITALS: BP 108/63; TEMP 97.7; O2SAT 95
--- NOTE | 2017-03-08 10:57 | DS ---
SUPERVISING PHYSICIAN: Sarbjit Baires MD DISCHARGE DIAGNOSES: 1. Hyperosmolar hyperglycemic state on admission requiring aggressive fluid management and insulin regimen modification with initial blood sugar on admission at 818, stabilized with blood sugars in the 200s.. 2. Diabetes mellitus type 2, uncontrolled as noted with hemoglobin A1c of 14.5. 3. Severe dehydration secondary to #1 resolved with aggressive fluid management. 4. Acute on chronic renal failure with a prerenal azotemia state secondary to #1 and underlying dehydration showing improvement and stabilization with improving creatinine after IV fluid replacement and better control of blood sugars. 5. Chronic obstructive pulmonary disease, stable. 6. Hypertension. 7. Hyperlipidemia. HISTORY OF PRESENT ILLNESS: Mr. Ricks is a 77 year-old calcaneal male patient who presented to the Emergency Department on 02/27/17 after he was found on the floor at home. He is a poorly controlled diabetic with diabetes mellitus type 2. The day before admission he felt extremely weak and his blood sugar was very elevated. He said he couldn't walk and he couldn't talk yesterday and ended up on the floor. He came to the Emergency Room and his CBC was basically within normal limits, but his chemistry showed sodium 129, potassium 5.8, chloride 92, carbon dioxide 21 and anion gap 21.8, BUN 100, creatinine 3.09. Glucose was 818 with serum osmolality of 330. Bilirubin 1.1, alkaline phosphatase 160. He was given a total of 4 liters of fluids in the Emergency Room and then started on an insulin drip. Over the next several hours in the Emergency Department his blood sugar came down to 733, 521, 355 and finally at 248. His anion gap normalized to 17.5 on admission to the floor as well as his BUN was 89 and creatinine was down to 2.57. His fluids were then changed to D5 NS with 20 of potassium at 150 an hour and his insulin drip was stopped. He was given 10 units of subcutaneous insulin and then admitted to the medical/surgical floor. LABORATORY STUDIES: CBC on admission showed a white count of 9.5 with a hemoglobin 15.2, hematocrit 42.4, platelet count 295,000. After treatment and IV fluids, prior to discharge his white count was 9.2, hemoglobin 13.3, hematocrit 39.4, platelet count within normal limits at 231,000, differential remained within normal limits. Chemistries initially on admission to the Emergency Department showed a sodium of 129, potassium 5.8 with anion gap of 21.8, glucose of 818 with BUN 100, creatinine 3.09, serum osmolality 330. After treatment as noted above at time of admission to the medical/surgical floor, the patient's electrolytes had normalized as well as his anion gap had normalized to 17.5, BUN was down to 89, creatinine 2.57. Glucose was 355. Serum osmolality was down to 313. Calcium 9.3. During hospitalization and with treatment, his blood sugars showed to be stabilized as well as his potassium remained within normal limits, although it did show elevation at times up to 5.6 maximum. The day before discharge his electrolytes were within normal limits. BUN down to 32, creatinine 1.5, blood sugars were anywhere from 140 to 329. Serum osmolality was normal at 285, calcium 8.8. Urinalysis on admission showed 500 glucose, trace blood, otherwise within normal limits. RADIOLOGY: He had a hip x-ray in the Emergency Department and per radiology interpretation 2-view hip showed mild hip osteoarthritic changes and no acute findings. HOSPITAL COURSE: As noted above, the patient was treated aggressively in the Emergency Department for elevated blood sugar and hyperosmolar state. He was treated with IV fluids prior to admission and showed good stabilization. He was admitted to the hospital for continuation of treatment and further evaluation and further treatment of his blood sugars as well as planning on discharge to assist with patient going home to a safe environment. Arrangements have been made for this patient to go to a shelter, [facility], however, he was kept over the weekend due to the fact that the facility was unable to accept admissions over the weekend, however, on Friday he was discharged in stable condition. PLAN: Mr. Ricks was discharged on 03/03/17 and admitted to [facility] and to have close followup with Dr. Yi. He was to resume his home medications as instructed prior to hospitalization and approved medication list. They were to check his blood sugars a.c. and h.s. His diet was to be 1800 calorie ADA. Physical therapy and treatment was ordered and activities were as per physical therapy recommendations. They were instructed to return the patient to the hospital should he have any worsening or change in his condition. He has a followup appointment on 03/10/17 at 2:15. Discharge medications included: 1. Regular insulin, Novolin-R, 17 units subcu 3 times a day. 2. Toujeo 80 units subcu daily. 3. Neurontin 300 mg at bedtime. 4. Colace 100 mg daily p.r.n. 5. Spiriva hand inhaler 18 mcg inhaled daily. 6. Micro-K 10 mEq with food twice a day. 7. Meclizine 50 mg at bedtime. 8. Lisinopril 20 mg twice a day. 9. Lasix 40 mg twice a day. 10. TriCor 134 mg at bedtime. 11. Lipitor 20 mg at bedtime. 12. Aspirin 81 mg daily. 13. Albuterol Nebs 2.5 mg q.i.d. DISCHARGE CONDITION: Stable and improved. [facility][id number] [facility]
== END 2017-03-03 16:05 | DRG 638 ==
LOC: ER 09:03 → MS 15:55
PROVIDERS: ADMIT Nurse Practitioner Acute Care; ATTEND Nurse Practitioner Family
DX: E11.00 Type 2 diabetes mellitus with hyperosmolarity without nonketotic hyperglycemic-hyperosmolar coma (NKHHC) (principal); N17.9 Acute kidney failure, unspecified; I13.0 Hypertensive heart and chronic kidney disease with heart failure and stage 1 through stage 4 chronic kidney disease, or unspecified chronic kidney disease; E86.0 Dehydration; E11.65 Type 2 diabetes mellitus with hyperglycemia; I50.9 Heart failure, unspecified; N18.9 Chronic kidney disease, unspecified; J44.9 Chronic obstructive pulmonary disease, unspecified; E78.5 Hyperlipidemia, unspecified; I25.10 Atherosclerotic heart disease of native coronary artery without angina pectoris; F03.90 Unspecified dementia, unspecified severity, without behavioral disturbance, psychotic disturbance, mood disturbance, and anxiety; E11.51 Type 2 diabetes mellitus with diabetic peripheral angiopathy without gangrene; G47.33 Obstructive sleep apnea (adult) (pediatric); J84.112 Idiopathic pulmonary fibrosis; N40.0 Benign prostatic hyperplasia without lower urinary tract symptoms; Z96.651 Presence of right artificial knee joint; Z96.653 Presence of artificial knee joint, bilateral; Z87.891 Personal history of nicotine dependence; Z88.5 Allergy status to narcotic agent; Z88.7 Allergy status to serum and vaccine; Z79.899 Other long term (current) drug therapy; Z79.84 Long term (current) use of oral hypoglycemic drugs; Z79.4 Long term (current) use of insulin; Z79.52 Long term (current) use of systemic steroids; Z79.82 Long term (current) use of aspirin

== ENCOUNTER → 2017-09-15 | Outpatient (CLI) | payer MEDICARE, OTHER | LOC: GMAB 16:17 | PROVIDERS: ATTEND Family Medicine | DX: I10 Essential (primary) hypertension (principal); Z12.5 Encounter for screening for malignant neoplasm of prostate | CPT/HCPCS: 84443; G0103 ==

== ENCOUNTER → 2018-12-31 | Outpatient (CLI) | payer MEDICARE, OTHER ==
--- NOTE | 2019-01-01 11:51 | CT ---
EXAM DESCRIPTION: Abdoment/Pelvis w/o Contrast CLINICAL HISTORY: STAGE 4 KIDNEY DISEASE COMPARISON: Chest CT June 19, 2016 TECHNIQUE: CT of the abdomen and Pelvis was performed without IV contrast. This exam was performed according to our departmental dose-optimization program, which includes automated exposure control, adjustment of the mA and/or kV according to patient size and/or use of iterative reconstruction technique. FINDINGS: Lung bases: 6 mm noncalcified nodule in the left lower lobe which appears stable from June 19, 2016. Coronary artery calcifications. Healed distal esophagus Abdominal aorta: No aneurysm or dissection. Ascites:None. Pneumoperitoneum:None. Adenopathy:None. Omentum:Normal. Distal esophagus: Small hiatal hernia Stomach:Unremarkable. Small bowel/mesentery:No wall thickening or dilation. No mesenteric inflammation. Liver:No hepatomegaly, mass or intrahepatic biliary duct dilation. Gallbladder:No calcified gallstones or adjacent inflammation. Spleen:No splenomegaly or focal splenic lesion. Pancreas:No mass, pancreatic duct dilation or peripancreatic inflammation/fluid. Adrenals:No adrenal nodule. Kidneys/ureters:No mass, urinary tract calculus or hydroureteronephrosis. No renal cortical atrophy. Mild bilateral perinephric inflammation or scarring, unchanged from June,. Bladder:No wall thickening or calcification. Reproductive organs:Unremarkable for patient's age. Colon: Colonic diverticulosis without diverticulitis. Appendix:No appendicitis. 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 Postoperative changes in the right hip partially visualized. Bilateral L5-S1 pars defects with grade 1 anterolisthesis at the same level. Degenerative disc disease at multiple levels in the lower thoracic and lumbar spine. Abdominal Wall: Small fat-containing umbilical hernia without complication. IMPRESSION: No urinary tract calculus, hydronephrosis, renal cortical atrophy or additional abnormality to explain renal failure. Colonic diverticulosis without diverticulitis and other nonacute findings as detailed above. 6 mm noncalcified nodule in the left lower lobe, unchanged from June,. This requires no further follow-up. Electronically signed by: Kervin Gu MD 01/01/2019 11:48 AM CDT
== END ==
LOC: CT 12-29 08:30
PROVIDERS: ATTEND Family Medicine
DX: N18.4 Chronic kidney disease, stage 4 (severe) (principal); K57.30 Diverticulosis of large intestine without perforation or abscess without bleeding

== ENCOUNTER 2019-09-26 12:51 | Observation (INO) | payer MEDICARE, OTHER ==
--- NOTE | 2019-09-26 13:30 | ED.PDOC ---
History of Present Illness - General Time Seen by Provider: 09/26/19 13:24 - History of Present Illness Initial Comments: 79 yo M PMH HTN DM DE presents to ED sent from long-term for LLE pain and redness x 1 day. Denies fever chills nausea vomiting diarrhea chest pain sob diaphoresis. Symptoms disturb rest no change in diet bowel or bladder. PMD Dr. Murillo denies smoking drinking admits FH HTN DM no other c/o today. Allergies/Adverse Reactions: Allergies Hydromorphone [From Dilaudid] Allergy (Verified 09/26/19 13:39) Morphine Allergy (Verified 09/26/19 13:39) Tetanus Toxoid Allergy (Verified 09/26/19 13:39) Home Medications: Ambulatory Orders Atorvastatin Calcium [Lipitor] 20 mg PO BEDTIME 06/16/15 Fenofibrate [Tricor] 134 mg PO BEDTIME 06/16/15 Furosemide [Lasix] 40 mg PO BID 06/16/15 Lisinopril [Prinivil] 20 mg PO BID 06/16/15 Meclizine HCl 50 mg PO BEDTIME 06/16/15 Potassium Chloride Tab [Micro-K] 10 meq PO BIDFD 06/16/15 Tiotropium [place] Monohydrate [Spiriva Handihaler] 18 mcg IN DAILY 06/16/15 Albuterol Sulfate Nebs [Proventil Nebs] 2.5 mg NEB RTQID #0 vial 07/22/15 Aspirin [Aspirin Childrens] 81 mg PO DAILY #0 07/22/15 Docusate Sodium [Colace] 100 mg PO DAILY PRN 02/26/17 Gabapentin [Neurontin] 300 mg PO BEDTIME 02/26/17 Insulin Glargine [Toujeo Solostar] 80 unit SC DAILY 02/26/17 Insulin Regular (Human) [Novolin R] 17 unit SC TIDFD #0 03/03/17 Review of Systems - Review of Systems Constitutional: States: see HPI EENTM: States: see HPI Respiratory: States: see HPI Cardiology: States: see HPI Gastrointestinal/Abdominal: States: see HPI Genitourinary: States: see HPI Musculoskeletal: States: see HPI Skin: States: see HPI Neurological: States: see HPI Endocrine: States: see HPI All other Systems: Reviewed and Negative Past Medical History (General) - Patient Medical History Hx Seizures: No Hx Stroke: Yes Hx Dementia: Yes Hx Asthma: Yes Hx of COPD: Yes Hx Cardiac Disorders: Yes - DE x1, heart failure Hx Congestive Heart Failure: Yes Hx Pacemaker: No Hx Hypertension: Yes Hx Thyroid Disease: No Hx Diabetes: Yes Hx Gastroesophageal Reflux: No Hx Renal Disease: No Hx Cancer: No Hx of HIV: No Hx Hepatitis C: No Hx MRSA: No - Vaccination History Hx Tetanus, Diphtheria Vaccination: No Hx Influenza Vaccination: Yes Hx Pneumococcal Vaccination: Yes - Social History Hx Tobacco Use: Yes Hx Alcohol Use: No Hx Substance Use: No Hx Physical Abuse: No Hx Emotional Abuse: No - Female History Patient : No Family Medical History - Family History Mother Family History: No Known Living Status: Hx Family Asthma: Yes Hx Cardiac Disease: Yes Hx Family Diabetes: Yes Father Family History: No Known Physical Exam - Physical Exam General Appearance: No apparent distress Eyes, Ears, Nose, Throat: normal ENT inspection Neck: non-tender, full range of motion Cardiovascular/Respiratory: regular rate, rhythm Gastrointestinal/Abdominal: non-tender Back: no CVA tenderness Thigh/Hip: non-tender Leg: soft tissue tenderness, other - erythematous Ankle: non-tender Foot: non-tender Neuro/Tendon: normal sensation, normal motor functions Mental Status: alert, oriented x 3 Skin: other - erythematous Progress - Progress Progress: 09/26/19 13:24 A/P-LLE Cellulitis-iv bolus cbc cmp lipase trop lactate ekg cxr blood cultures zosyn vancomycin tylenol ADMIT EKG-non specific TW changes No STEMI 1st degree AV block 09/26/19 15:01 Laboratory Tests 09/26/19 09/26/19 09/26/19 13:57 13:57 13:57 WBC 8.2 RBC 4.97 Hgb 15.7 Hct 45.5 MCV 91.5 MCH 31.6 H MCHC 34.5 RDW 13.4 Plt Count 292 MPV 8.7 Absolute Neuts (auto) 4.20 Absolute Lymphs (auto) 2.60 Absolute Monos (auto) 0.80 Absolute Eos (auto) 0.60 H Absolute Basos (auto) 0.10 Neutrophils % 50.7 Lymphocytes % 31.6 Monocytes % 9.5 H Eosinophils % 7.1 H Basophils % 1.1 ESR 20 PT 11.2 H INR 1.13 PTT (SP) 25.1 Sodium Potassium Chloride Carbon Dioxide Anion Gap BUN Creatinine BUN/Creatinine Ratio Random Glucose Serum Osmolality Lactic Acid Calcium Total Bilirubin AST ALT Alkaline Phosphatase Troponin I C-Reactive Protein Serum Total Protein Albumin Globulin Albumin/Globulin Ratio Lipase 09/26/19 09/26/19 09/26/19 13:57 13:57 13:57 WBC RBC Hgb Hct MCV MCH MCHC RDW Plt Count MPV Absolute Neuts (auto) Absolute Lymphs (auto) Absolute Monos (auto) Absolute Eos (auto) Absolute Basos (auto) Neutrophils % Lymphocytes % Monocytes % Eosinophils % Basophils % ESR PT INR PTT (SP) Sodium 140 Potassium 4.6 Chloride 104 Carbon Dioxide 26 Anion Gap 14.6 BUN 35 H Creatinine 2.05 H BUN/Creatinine Ratio 17.1 Random Glucose 115 H Serum Osmolality 288.3 Lactic Acid 2.5 H* Calcium 9.7 Total Bilirubin 0.8 AST 31 ALT 18 Alkaline Phosphatase 71 Troponin I < 0.02 C-Reactive Protein Serum Total Protein 7.3 Albumin 3.7 Globulin 3.6 H Albumin/Globulin Ratio 1.0 L Lipase 29 09/26/19 13:57 WBC RBC Hgb Hct MCV MCH MCHC RDW Plt Count MPV Absolute Neuts (auto) Absolute Lymphs (auto) Absolute Monos (auto) Absolute Eos (auto) Absolute Basos (auto) Neutrophils % Lymphocytes % Monocytes % Eosinophils % Basophils % ESR PT INR PTT (SP) Sodium Potassium Chloride Carbon Dioxide Anion Gap BUN Creatinine BUN/Creatinine Ratio Random Glucose Serum Osmolality Lactic Acid Calcium Total Bilirubin AST ALT Alkaline Phosphatase Troponin I C-Reactive Protein 0.6 Serum Total Protein Albumin Globulin Albumin/Globulin Ratio Lipase EXAM DESCRIPTION: XR Chest,1 View (accession [id number]), XR Ankle, left 3 Views (accession [id number]), XR Foot, left 3 Views (accession [id number]) CLINICAL HISTORY: 79 years Male, pain COMPARISON: October 15, 2018. FINDINGS: CHEST: Heart size appears borderline prominent, although accentuated by technique and a lesser degree of pulmonary inflation than on the previous study. There is atherosclerotic change in the thoracic aorta. The lungs appear essentially clear, with less accentuation of markings than on the previous study. No gross pneumothorax identified on this upright portable film. There is patient tilting to the left. No gross acute bony changes are identified. LEFT ANKLE: There is no evidence of acute fracture or dislocation or destructive bony lesion. The ankle mortise appears maintained. Soft tissue swelling is noted about the ankle. There are vascular calcifications. LEFT FOOT: There is no evidence of acute fracture or dislocation or destructive bony lesion. There is foreshortening of the second through fourth proximal phalanges on the AP and oblique views, due to dorsiflexion of the toes. Joint spaces appear maintained as visualized. There is a plantar spur. Vascular calcifications are noted. Questionable slight soft tissue swelling at the dorsal aspect of the distal foot. IMPRESSION: 1. No radiographic evidence of acute cardiopulmonary disease . 2. No significant acute bony abnormality identified in the left foot or ankle. Plantar spurring. Soft tissue findings as described above. Electronically signed by: Suleman Hudson MD 09/26/2019 2:19 PM CDT Also Dx-Lactic Acidosis Acute Renal Failure 09/26/19 15:05 09/26/19 15:43 Laboratory Tests 09/26/19 09/26/19 09/26/19 13:57 13:57 13:57 WBC 8.2 RBC 4.97 Hgb 15.7 Hct 45.5 MCV 91.5 MCH 31.6 H MCHC 34.5 RDW 13.4 Plt Count 292 MPV 8.7 Absolute Neuts (auto) 4.20 Absolute Lymphs (auto) 2.60 Absolute Monos (auto) 0.80 Absolute Eos (auto) 0.60 H Absolute Basos (auto) 0.10 Neutrophils % 50.7 Lymphocytes % 31.6 Monocytes % 9.5 H Eosinophils % 7.1 H Basophils % 1.1 ESR 20 PT 11.2 H INR 1.13 PTT (SP) 25.1 Sodium Potassium Chloride Carbon Dioxide Anion Gap BUN Creatinine BUN/Creatinine Ratio Random Glucose Serum Osmolality Lactic Acid Calcium Total Bilirubin AST ALT Alkaline Phosphatase Troponin I C-Reactive Protein Serum Total Protein Albumin Globulin Albumin/Globulin Ratio Lipase 09/26/19 09/26/19 09/26/19 13:57 13:57 13:57 WBC RBC Hgb Hct MCV MCH MCHC RDW Plt Count MPV Absolute Neuts (auto) Absolute Lymphs (auto) Absolute Monos (auto) Absolute Eos (auto) Absolute Basos (auto) Neutrophils % Lymphocytes % Monocytes % Eosinophils % Basophils % ESR PT INR PTT (SP) Sodium 140 Potassium 4.6 Chloride 104 Carbon Dioxide 26 Anion Gap 14.6 BUN 35 H Creatinine 2.05 H BUN/Creatinine Ratio 17.1 Random Glucose 115 H Serum Osmolality 288.3 Lactic Acid 2.5 H* Calcium 9.7 Total Bilirubin 0.8 AST 31 ALT 18 Alkaline Phosphatase 71 Troponin I < 0.02 C-Reactive Protein Serum Total Protein 7.3 Albumin 3.7 Globulin 3.6 H Albumin/Globulin Ratio 1.0 L Lipase 29 09/26/19 13:57 WBC RBC Hgb Hct MCV MCH MCHC RDW Plt Count MPV Absolute Neuts (auto) Absolute Lymphs (auto) Absolute Monos (auto) Absolute Eos (auto) Absolute Basos (auto) Neutrophils % Lymphocytes % Monocytes % Eosinophils % Basophils % ESR PT INR PTT (SP) Sodium Potassium Chloride Carbon Dioxide Anion Gap BUN Creatinine BUN/Creatinine Ratio Random Glucose Serum Osmolality Lactic Acid Calcium Total Bilirubin AST ALT Alkaline Phosphatase Troponin I C-Reactive Protein 0.6 Serum Total Protein Albumin Globulin Albumin/Globulin Ratio Lipase 09/26/19 16:25 Laboratory Tests 09/26/19 09/26/19 09/26/19 13:57 13:57 13:57 WBC 8.2 RBC 4.97 Hgb 15.7 Hct 45.5 MCV 91.5 MCH 31.6 H MCHC 34.5 RDW 13.4 Plt Count 292 MPV 8.7 Absolute Neuts (auto) 4.20 Absolute Lymphs (auto) 2.60 Absolute Monos (auto) 0.80 Absolute Eos (auto) 0.60 H Absolute Basos (auto) 0.10 Neutrophils % 50.7 Lymphocytes % 31.6 Monocytes % 9.5 H Eosinophils % 7.1 H Basophils % 1.1 ESR 20 PT 11.2 H INR 1.13 PTT (SP) 25.1 Sodium Potassium Chloride Carbon Dioxide Anion Gap BUN Creatinine BUN/Creatinine Ratio Random Glucose Serum Osmolality Lactic Acid Calcium Total Bilirubin AST ALT Alkaline Phosphatase Troponin I C-Reactive Protein Serum Total Protein Albumin Globulin Albumin/Globulin Ratio Lipase 09/26/19 09/26/19 09/26/19 13:57 13:57 13:57 WBC RBC Hgb Hct MCV MCH MCHC RDW Plt Count MPV Absolute Neuts (auto) Absolute Lymphs (auto) Absolute Monos (auto) Absolute Eos (auto) Absolute Basos (auto) Neutrophils % Lymphocytes % Monocytes % Eosinophils % Basophils % ESR PT INR PTT (SP) Sodium 140 Potassium 4.6 Chloride 104 Carbon Dioxide 26 Anion Gap 14.6 BUN 35 H Creatinine 2.05 H BUN/Creatinine Ratio 17.1 Random Glucose 115 H Serum Osmolality 288.3 Lactic Acid 2.5 H* Calcium 9.7 Total Bilirubin 0.8 AST 31 ALT 18 Alkaline Phosphatase 71 Troponin I < 0.02 C-Reactive Protein Serum Total Protein 7.3 Albumin 3.7 Globulin 3.6 H Albumin/Globulin Ratio 1.0 L Lipase 29 09/26/19 09/26/19 13:57 15:29 WBC RBC Hgb Hct MCV MCH MCHC RDW Plt Count MPV Absolute Neuts (auto) Absolute Lymphs (auto) Absolute Monos (auto) Absolute Eos (auto) Absolute Basos (auto) Neutrophils % Lymphocytes % Monocytes % Eosinophils % Basophils % ESR PT INR PTT (SP) Sodium Potassium Chloride Carbon Dioxide Anion Gap BUN Creatinine BUN/Creatinine Ratio Random Glucose Serum Osmolality Lactic Acid Calcium Total Bilirubin AST ALT Alkaline Phosphatase Troponin I < 0.02 C-Reactive Protein 0.6 Serum Total Protein Albumin Globulin Albumin/Globulin Ratio Lipase ADMIT Departure - Departure Clinical Impression: Cellulitis of left lower extremity, Lactic acidosis Leg pain Qualifiers: Laterality: left Qualified Code(s): M79.605 - Pain in left leg Acute renal failure Qualifiers: Acute renal failure type: unspecified Qualified Code(s): N17.9 - Acute kidney failure, unspecified Time of Disposition: 16:30 Disposition: Discharge to Home or Self Care Condition: Fair Referrals: KALINA MURILLO MD [Primary Care Provider] - 1-2 Days Home Medications: Ambulatory Orders Atorvastatin Calcium [Lipitor] 20 mg PO BEDTIME 06/16/15 Fenofibrate [Tricor] 134 mg PO BEDTIME 06/16/15 Furosemide [Lasix] 40 mg PO BID 06/16/15 Lisinopril [Prinivil] 20 mg PO BID 06/16/15 Meclizine HCl 50 mg PO BEDTIME 06/16/15 Potassium Chloride Tab [Micro-K] 10 meq PO BIDFD 06/16/15 Tiotropium [place] Monohydrate [Spiriva Handihaler] 18 mcg IN DAILY 06/16/15 Albuterol Sulfate Nebs [Proventil Nebs] 2.5 mg NEB RTQID #0 vial 07/22/15 Aspirin [Aspirin Childrens] 81 mg PO DAILY #0 07/22/15 Docusate Sodium [Colace] 100 mg PO DAILY PRN 02/26/17 Gabapentin [Neurontin] 300 mg PO BEDTIME 02/26/17 Insulin Glargine [Toujeo Solostar] 80 unit SC DAILY 02/26/17 Insulin Regular (Human) [Novolin R] 17 unit SC TIDFD #0 03/03/17 Decision To Admit - Decistion To Admit Decision to Admit Date: 09/26/19 Decision to Admit Time: 16:31 - Rosa Dailey Accepts
[2019-09-26] MEDS ORDERED: SODIUM CHLORIDE 0.9% 1000ML 1,000 ML IVS ONE (13:33)
[2019-09-26] MEDS ORDERED: VANCOMYCIN HCL INJ 1,000 MG in SODIUM CHLORIDE 0.9% 250ML 250 ML IVPB ONE (13:33)
[2019-09-26] MEDS ORDERED: ACETAMINOPHEN 500 MG TAB PO ONE (13:33)
[2019-09-26] MEDS ORDERED: PIPERACILLIN/TAZOBACTAM 3.375 GM in SODIUM CHLORIDE 0.9% 100ML 100 ML IVPB ONE (13:33)
[2019-09-26] MEDS ORDERED: SODIUM CHLORIDE 0.9% 100ML 100 ML IVPB ONE ×2 (14:02→20:42)
[2019-09-26] MEDS ORDERED: PIPERACILLIN/TAZOBACTAM 3.375 GM VIAL IVPB ONE ×3 (14:02→20:42)
--- NOTE | 2019-09-26 14:21 | RAD ---
EXAM DESCRIPTION: XR Chest,1 View (accession [id number]), XR Ankle, left 3 Views (accession [id number]), XR Foot, left 3 Views (accession [id number]) CLINICAL HISTORY: 79 years Male, pain COMPARISON: October 15, 2018. FINDINGS: CHEST: Heart size appears borderline prominent, although accentuated by technique and a lesser degree of pulmonary inflation than on the previous study. There is atherosclerotic change in the thoracic aorta. The lungs appear essentially clear, with less accentuation of markings than on the previous study. No gross pneumothorax identified on this upright portable film. There is patient tilting to the left. No gross acute bony changes are identified. LEFT ANKLE: There is no evidence of acute fracture or dislocation or destructive bony lesion. The ankle mortise appears maintained. Soft tissue swelling is noted about the ankle. There are vascular calcifications. LEFT FOOT: There is no evidence of acute fracture or dislocation or destructive bony lesion. There is foreshortening of the second through fourth proximal phalanges on the AP and oblique views, due to dorsiflexion of the toes. Joint spaces appear maintained as visualized. There is a plantar spur. Vascular calcifications are noted. Questionable slight soft tissue swelling at the dorsal aspect of the distal foot. IMPRESSION: 1. No radiographic evidence of acute cardiopulmonary disease. 2. No significant acute bony abnormality identified in the left foot or ankle. Plantar spurring. Soft tissue findings as described above. Electronically signed by: Suleman Hudson MD 09/26/2019 2:19 PM CDT
--- NOTE | 2019-09-26 14:21 | RAD ---
EXAM DESCRIPTION: XR Chest,1 View (accession [id number]), XR Ankle, left 3 Views (accession [id number]), XR Foot, left 3 Views (accession [id number]) CLINICAL HISTORY: 79 years Male, pain COMPARISON: October 15, 2018. FINDINGS: CHEST: Heart size appears borderline prominent, although accentuated by technique and a lesser degree of pulmonary inflation than on the previous study. There is atherosclerotic change in the thoracic aorta. The lungs appear essentially clear, with less accentuation of markings than on the previous study. No gross pneumothorax identified on this upright portable film. There is patient tilting to the left. No gross acute bony changes are identified. LEFT ANKLE: There is no evidence of acute fracture or dislocation or destructive bony lesion. The ankle mortise appears maintained. Soft tissue swelling is noted about the ankle. There are vascular calcifications. LEFT FOOT: There is no evidence of acute fracture or dislocation or destructive bony lesion. There is foreshortening of the second through fourth proximal phalanges on the AP and oblique views, due to dorsiflexion of the toes. Joint spaces appear maintained as visualized. There is a plantar spur. Vascular calcifications are noted. Questionable slight soft tissue swelling at the dorsal aspect of the distal foot. IMPRESSION: 1. No radiographic evidence of acute cardiopulmonary disease. 2. No significant acute bony abnormality identified in the left foot or ankle. Plantar spurring. Soft tissue findings as described above. Electronically signed by: Suleman Hudson MD 09/26/2019 2:19 PM CDT
--- NOTE | 2019-09-26 14:21 | RAD ---
EXAM DESCRIPTION: XR Chest,1 View (accession [id number]), XR Ankle, left 3 Views (accession [id number]), XR Foot, left 3 Views (accession [id number]) CLINICAL HISTORY: 79 years Male, pain COMPARISON: October 15, 2018. FINDINGS: CHEST: Heart size appears borderline prominent, although accentuated by technique and a lesser degree of pulmonary inflation than on the previous study. There is atherosclerotic change in the thoracic aorta. The lungs appear essentially clear, with less accentuation of markings than on the previous study. No gross pneumothorax identified on this upright portable film. There is patient tilting to the left. No gross acute bony changes are identified. LEFT ANKLE: There is no evidence of acute fracture or dislocation or destructive bony lesion. The ankle mortise appears maintained. Soft tissue swelling is noted about the ankle. There are vascular calcifications. LEFT FOOT: There is no evidence of acute fracture or dislocation or destructive bony lesion. There is foreshortening of the second through fourth proximal phalanges on the AP and oblique views, due to dorsiflexion of the toes. Joint spaces appear maintained as visualized. There is a plantar spur. Vascular calcifications are noted. Questionable slight soft tissue swelling at the dorsal aspect of the distal foot. IMPRESSION: 1. No radiographic evidence of acute cardiopulmonary disease. 2. No significant acute bony abnormality identified in the left foot or ankle. Plantar spurring. Soft tissue findings as described above. Electronically signed by: Suleman Hudson MD 09/26/2019 2:19 PM CDT
[2019-09-26] MEDS ORDERED: VANCOMYCIN HCL INJ 1,000 MG VIAL IVPB ONE (15:24)
[2019-09-26] MEDS ORDERED: SODIUM CHLORIDE 0.9% 250ML 250 ML ONE (15:25)
--- NOTE | 2019-09-26 17:39 | HP ---
SUPERVISING PHYSICIAN: Michael Moreno MD CHIEF COMPLAINT: Left lower leg pain. HISTORY OF PRESENT ILLNESS: This is a 79-year-old patient who presented to the Emergency Room from [facility]. He had left lower leg pain that had been going on for several days. He denied fever and chills. He states it started about two days ago. He does not remember having problems with that lower leg. In the Emergency Room, his initial vital signs showed temperature 97.5, heart rate 100, blood pressure 223/105, respiratory rate 22, O2 saturation 96% on room air. His lab studies showed WBC 8.2, hemoglobin 15.7, hematocrit 45.5, ESR 20. Electrolytes were basically within normal limits with initial lactic acid 2.5. Troponin less than 0.02. Urinalysis was unremarkable. Blood cultures were drawn. He was given Zosyn and vancomycin in the Emergency Room as well as some fluids. He does have a history of diabetes. He also got some saline. I was called for hospital admission. PAST MEDICAL HISTORY: 1. Congestive heart failure of unknown etiology. 2. Coronary artery disease. 3. Dementia. 4. Diabetes mellitus, type 2. 5. Hypertension. 6. Hyperlipidemia. 7. Peripheral vascular disease. 8. Obstructive sleep apnea. 9. Idiopathic pulmonary fibrosis. 10. History of myocardial infarction. 11. Chronic obstructive pulmonary disease. 12. Benign prostatic hypertrophy. PAST SURGICAL HISTORY: 1. Right hip replacement. 2. Bilateral shoulder surgery. 3. Bilateral knee replacements. OUTPATIENT MEDICATIONS: Per the EMR and awaiting verification. ALLERGIES: NO KNOWN DRUG ALLERGIES. SOCIAL HISTORY: He lives at [facility]. He has two children. He quit smoking over 20 years ago. He has no history of ETOH or illicit drug use. REVIEW OF SYSTEMS: GENERAL: Positive for fatigue, fever and chills. HEENT: Negative for sinus symptoms, ear pain, vision changes or sore throat. RESPIRATORY: Negative for wheezing, coughing or shortness of breath. CARDIAC: Negative for chest pain, palpitations or tachycardia. GASTROINTESTINAL: Negative for nausea, vomiting, diarrhea. GENITOURINARY: Negative for hematuria, dysuria or polyuria. MUSCULOSKELETAL: Negative for arthralgias, myalgias. SKIN: As per history of present illness. NEUROLOGIC: Negative for headache, weakness or seizures. PHYSICAL EXAMINATION: VITAL SIGNS: Temperature 98.5. Heart rate 82. Blood pressure 173/73. Respiratory rate 20. O2 saturation 93% on room air. GENERAL: This is a 79-year-old male patient lying in his hospital bed. He is in no acute distress. HEENT: Normocephalic, atraumatic. Pupils are equal and reactive. Oropharynx is clear. NECK: Supple without mass. CARDIOVASCULAR: Regular rate and rhythm. GASTROINTESTINAL: Abdomen is soft, nondistended, nontender. Bowel sounds are positive. GENITOURINARY: Deferred. EXTREMITIES: Bilateral pedal pulses are palpable at +2. Left lower extremity has an area of cellulitis on his left lower mayen area. There is a scabbed area, on the mayen, that is about 1.5 cm by 1 cm. There is another scabbed area, approximately 1cm in diameter, just lateral to the other lesion, that is a newer-looking wound, that looks recently healed over. There is no fluctuance, no drainage, although it is edematous. The erythema extends from the anterior portion of his left lower leg to the back of his left lower leg. It is circumferential. It is more prominent on the anterior portion of his lower leg. It is slightly warm to touch as well as tender to palpation. NEUROLOGIC: Awake, alert and oriented to person and placed. LABORATORY: Foot x-rays shows no evidence of acute fracture of the left ankle. Left foot with no evidence of acute fracture or dislocation. He does have a plantar spur. Chest x-ray shows no radiographic evidence of acute cardiopulmonary. All other labs and films have been reviewed via the EMR. IMPRESSION: 1. Cellulitis of the left lower extremity. 2. Hypertensive crisis with a history of hypertension. 3. Diabetes mellitus, type 2. 4. Chronic obstructive pulmonary disease without signs or symptoms of acute exacerbation. 5. Hyperlipidemia. PLAN: The patient has been admitted to the hospital. His vancomycin and Zosyn have been resumed. He is also on sliding scale insulin as per hospital protocol. His home medications will be restarted as soon as they are verified. He will have AM labs as well as physical therapy consult. He has Lovenox for DVT prophylaxis. We will continue to monitor the patient closely and follow as needed. #[id number] [facility]
[2019-09-26] MEDS ORDERED: SODIUM CHLORIDE 0.9% (FLUSH) 10 ML SYG IV PRN (19:24)
[2019-09-26] MEDS ORDERED: IV SET AND CAP CHANGE INJ INJ SCH (19:30)
[2019-09-26] MEDS ORDERED: ACETAMINOPHEN 325 MG TAB PO PRN (19:40)
[2019-09-26] MEDS ORDERED: ONDANSETRON INJ 4 MG/2 ML VIAL IV PRN (19:40)
[2019-09-26] MEDS ORDERED: VANCOMYCIN PER PHARMACY IVPB SCH (20:00)
[2019-09-26] MEDS ORDERED: ALBUTEROL SULFATE 2.5 MG/3 ML VIAL NEB PRN (20:02)
[2019-09-26] MEDS ORDERED: DEXTROSE 50% 25 GM/50 ML SYG IV PRN (20:24)
[2019-09-26] MEDS ORDERED: GLUCAGON INJ 1 MG VIAL SUBCU PRN (20:24)
[2019-09-26] MEDS ORDERED: LISINOPRIL 10 MG TAB ONE (20:41)
[2019-09-26] MEDS ORDERED: MECLIZINE HCL 12.5 MG TAB ONE (20:41)
[2019-09-26] MEDS ORDERED: FUROSEMIDE 40 MG TAB ONE (20:42)
[2019-09-26] MEDS ORDERED: FENOFIBRATE 134 MG PO SCH (21:00)
[2019-09-26] MEDS ORDERED: MECLIZINE HCL 50 MG PO SCH (21:00)
[2019-09-26] MEDS ORDERED: FUROSEMIDE 40 MG TAB PO SCH (21:00)
[2019-09-26] MEDS: PIPERACILLIN/TAZOBACTAM 3.375 GM in SODIUM CHLORIDE 0.9% 100ML 100 ML IVPB SCH (21:45)
[2019-09-26] MEDS: ENOXAPARIN SODIUM 40 MG/0.4 ML SYG SUBCU SCH (21:52)
[2019-09-26] MEDS: ATORVASTATIN 20 MG TAB PO SCH (21:52)
[2019-09-26] MEDS: NON-FORMULARY MEDICATION 1 EA MIS (Lisinopril [Prinivil] 20 MG) PO SCH (21:53)
[2019-09-26] MEDS: IPRATROPIUM/ALBUTEROL 3 ML VIAL NEB SCH (21:55)
[2019-09-26] MEDS: INSULIN LISPRO 100 UNITS/ML PEN SUBCU SCH (21:58)
[2019-09-27] MEDS ORDERED: PIPERACILLIN/TAZOBACTAM 3.375 GM VIAL IVPB ONE ×5 (00:57→22:44)
[2019-09-27] MEDS ORDERED: SODIUM CHLORIDE 0.9% 100ML 100 ML IVPB ONE ×5 (00:57→22:44)
[2019-09-27] MEDS: PIPERACILLIN/TAZOBACTAM 3.375 GM in SODIUM CHLORIDE 0.9% 100ML 100 ML IVPB SCH ×4 (02:13→20:16)
[2019-09-27] MEDS: INSULIN LISPRO 100 UNITS/ML PEN SUBCU SCH ×4 (08:16→21:09)
[2019-09-27] MEDS: ASPIRIN (CHEWABLE) 81 MG TAB PO SCH (08:17)
[2019-09-27] MEDS: POTASSIUM CHLORIDE 10 MEQ TAB PO SCH (08:18)
[2019-09-27] MEDS: FUROSEMIDE 40 MG TAB PO SCH ×2 (08:18→17:18)
[2019-09-27] MEDS ORDERED: LISINOPRIL 10 MG TAB ONE (08:37)
[2019-09-27] MEDS: NON-FORMULARY MEDICATION 1 EA MIS (Lisinopril [Prinivil] 20 MG) PO SCH (08:39)
[2019-09-27] MEDS: TIOTROPIUM INHALER INH SCH (10:00)
[2019-09-27] MEDS: IPRATROPIUM/ALBUTEROL 3 ML VIAL NEB SCH ×4 (10:20→20:39)
[2019-09-27] MEDS ORDERED: VANCOMYCIN HCL INJ 500 MG VIAL ONE (10:26)
[2019-09-27] MEDS ORDERED: SODIUM CHLORIDE 0.9% 250ML 250 ML ONE (10:27)
[2019-09-27] MEDS ORDERED: VANCOMYCIN HCL INJ 1,000 MG VIAL IVPB ONE (10:27)
[2019-09-27] MEDS ORDERED: VANCOMYCIN HCL INJ 1,000 MG, VANCOMYCIN HCL INJ 250 MG in SODIUM CHLORIDE 0.9% 250ML 25... IVPB SCH (12:00)
[2019-09-27] MEDS: ATORVASTATIN 20 MG TAB PO SCH (20:18)
[2019-09-27] MEDS: ENOXAPARIN SODIUM 40 MG/0.4 ML SYG SUBCU SCH (20:18)
[2019-09-27] MEDS: LISINOPRIL 10 MG TAB PO SCH (20:19)
[2019-09-27] MEDS ORDERED: MECLIZINE HCL 12.5 MG TAB PO SCH (21:00)
[2019-09-27] MEDS ORDERED: FENOFIBRIC ACID 135 MG CAP PO SCH (21:00)
--- NOTE | 2019-09-27 21:25 | PN ---
DATE: 09/27/19 SUPERVISING PHYSICIAN: Benji Murillo M.D. SUBJECTIVE: The patient is lying in bed. He has no complaints of nausea or vomiting, diarrhea, shortness of breath, or chest pain. OBJECTIVE: VITAL SIGNS: Temperature 98.5, heart rate 68, blood pressure 144/74, respiratory rate 19, O2 saturation 97% on room air. RESPIRATORY: Essentially clear to auscultation bilaterally. CARDIAC: Regular rate and rhythm. GASTROINTESTINAL: Abdomen is soft, nondistended, non-tender. Bowel sounds are positive. EXTREMITIES: Bilateral pedal pulses are +2. The area of erythema and edema to that left lower leg is much improved. It is mostly on the anterior portion of his mayen. It continues to be circumferential but it has improved probably 50% since his exam yesterday. NEUROLOGIC: He is awake, alert and oriented times three. LABORATORY: CBC is basically within normal limits.Electrolytes are also within normal limits. Creatinine is slightly increased to 2.3. Blood sugars have run between 119 and 203. Preliminary blood cultures show no growth. All other labs and films have been reviewed via the EMR. ASSESSMENT: 1. Cellulitis of the left lower extremity. 2. Hypertensive crisis with a history of hypertension that has improved. 3. Acute on chronic renal insufficiency. His baseline creatinine is about 1.7. He was admitted with a creatinine of 2.05. It is now 2.3. 4. Diabetes mellitus, type 2. 5. Chronic obstructive pulmonary disease without signs or symptoms of acute exacerbation. 6. Hyperlipidemia. PLAN: We will continue present supportive care. I have changed him from an inpatient to an observation patient. If he continues to improve, he should be able to be discharged back to [facility] tomorrow on oral antibiotics. I have ordered lab for in the morning as well as a physical therapy consultation. Will continue to monitor closely and follow as needed. #[id number] [facility]
[2019-09-28] MEDS: PIPERACILLIN/TAZOBACTAM 3.375 GM in SODIUM CHLORIDE 0.9% 100ML 100 ML IVPB SCH ×2 (02:37→09:17)
[2019-09-28] MEDS: IPRATROPIUM/ALBUTEROL 3 ML VIAL NEB SCH ×2 (08:00→15:57)
[2019-09-28] MEDS: TIOTROPIUM INHALER INH SCH (08:00)
[2019-09-28] MEDS: INSULIN LISPRO 100 UNITS/ML PEN SUBCU SCH ×2 (08:15→12:47)
[2019-09-28] MEDS ORDERED: SODIUM CHLORIDE 0.9% 100ML 100 ML IVPB ONE (09:03)
[2019-09-28] MEDS ORDERED: PIPERACILLIN/TAZOBACTAM 3.375 GM VIAL IVPB ONE (09:03)
[2019-09-28 09:14] VITALS: BP 125/95; TEMP 98.8; O2SAT 99
[2019-09-28] MEDS: POTASSIUM CHLORIDE 10 MEQ TAB PO SCH (09:16)
[2019-09-28] MEDS: ASPIRIN (CHEWABLE) 81 MG TAB PO SCH (09:16)
[2019-09-28] MEDS: FUROSEMIDE 40 MG TAB PO SCH (09:16)
[2019-09-28] MEDS: LISINOPRIL 10 MG TAB PO SCH (09:16)
[2019-09-28] MEDS ORDERED: DOXYCYCLINE HYCLATE CAP 100 MG CAP PO SCH (12:00)
[2019-09-28] MEDS ORDERED: AMOXICILLIN & POT CLAVULANATE 875 MG TAB PO SCH (12:00)
--- NOTE | 2019-10-08 10:17 | DS ---
SUPERVISING PHYSICIAN: Miranda Murillo MD ADMISSION DIAGNOSIS: 1. Cellulitis of the left lower extremity. 2. Hypertensive crisis with a history of hypertension. 3. Diabetes mellitus, type 2. 4. Chronic obstructive pulmonary disease without signs or symptoms of acute exacerbation. 5. Hyperlipidemia. DISCHARGE DIAGNOSIS: 1. Cellulitis of the left leg. 2. Hypertensive crisis with a history of poorly controlled hypertension, now normalized the patient's baseline levels. 3. Acute on chronic renal failure, back to baseline levels. 4. Diabetes mellitus, type 2. 5. Chronic obstructive pulmonary disease without signs or symptoms of acute exacerbation. 6. Hyperlipidemia. REASON FOR HOSPITALIZATION: This is a 79-year-old patient who presented to the Emergency Room from [facility]. He had left lower leg pain that had been going on for several days. He denied fever and chills. He states it started about two days ago. He does not remember having problems with that lower leg. In the Emergency Room, his initial vital signs showed temperature 97.5, heart rate 100, blood pressure 223/105, respiratory rate 22, O2 saturation 96% on room air. His lab studies showed WBC 8.2, hemoglobin 15.7, hematocrit 45.5, ESR 20. Electrolytes were basically within normal limits with initial lactic acid 2.5. Troponin less than 0.02. Urinalysis was unremarkable. Blood cultures were drawn. He was given Zosyn and vancomycin in the Emergency Room as well as some fluids. He does have a history of diabetes. He also got some saline. I was called for hospital admission. LABORATORY: White count on discharge was 11,300, hemoglobin 15.1, hematocrit 44.2, platelet count 267,000, differential without a left shift. Sedrate was 20. Coagulation studies showed normal PT, PTT. Discharge chemistry showed normal electrolytes. BUN 40, creatinine 2.74, but he had been on Zosyn and vancomycin and was showing no complications. Blood sugar ranged between 157 and 272. Magnesium normal at 1.9, calcium 9.1. C-reactive protein was normal at 0.6. MICROBIOLOGY: Blood cultures showed no growth after 5 days. RADIOLOGY: Chest, left ankle and left foot x-rays per radiologic interpretation showed no evidence of acute fractures or dislocation of extremities and no acute cardiopulmonary findings on the chest film. Please see that report for details. EKG showed a sinus rhythm with no signs of ST or T-wave changes to indicate acute ischemia or injury pattern. HOSPITAL COURSE: Mr. Ricks was admitted for cellulitis of the extremity. He was initially treated with Zosyn and vancomycin. He was changed to Augmentin due to the fact that he was showing some elevation in his creatinine level along with the Zosyn and vancomycin, but was transitioned to oral medications with doxycycline at discharge. He was not sent home with any continued Augmentin. He showed good response to treatment and was transitioned to oral medications prior to discharge to include doxycycline. It was felt he had improved significantly and could continue with outpatient management. DISCHARGE ASSESSMENT: VITAL SIGNS: Stable with temperature 98, pulse 64, blood pressure 125/95 compared to admission where his blood pressure was 235/105 which was controlled initially with some Lasix and lisinopril. Respirations 20. Saturation 99% on 2 liters nasal cannula. GENERAL: The patient is in no acute distress and is alert. CHEST: Clear to auscultation bilaterally. HEART: Regular rate and rhythm. ABDOMEN: Obese, but soft, nontender, positive bowel sounds. EXTREMITIES: 2+ pedal pulses. Just very mild erythema and edema to the left lower leg, which was essentially gone compared to admission with significant decrease in swelling compared to admission. NEUROLOGIC: Alert and oriented times 3. PLAN: Mr. Ricks was discharged on 09/28/19 with instructions to followup with Dr. Murillo in 7 days or sooner and to call to schedule an appointment. He was to resume a diabetic diet. He was discharged back to [facility] and was to resume all previous medications as prior to hospitalization. He was to resume physical therapy as directed. Medication prescribed at discharge was doxycycline 100 mg twice daily, #28, no refills. DISPOSITION: The patient was discharged to [facility]. CONDITION ON DISCHARGE: Stable and improved. #[id number] [facility]
== END 2019-09-28 12:45 ==
LOC: ER 12:51 → INTOOBSV 17:37 → OBSVTOIN 17:37 → MS 17:37
PROVIDERS: ADMIT Nurse Practitioner Acute Care; ATTEND Nurse Practitioner Family
DX: L03.116 Cellulitis of left lower limb (principal); M79.662 Pain in left lower leg; I16.9 Hypertensive crisis, unspecified; I13.0 Hypertensive heart and chronic kidney disease with heart failure and stage 1 through stage 4 chronic kidney disease, or unspecified chronic kidney disease; E11.22 Type 2 diabetes mellitus with diabetic chronic kidney disease; N17.9 Acute kidney failure, unspecified; N18.9 Chronic kidney disease, unspecified; J44.9 Chronic obstructive pulmonary disease, unspecified; E78.5 Hyperlipidemia, unspecified; I50.9 Heart failure, unspecified; F03.90 Unspecified dementia, unspecified severity, without behavioral disturbance, psychotic disturbance, mood disturbance, and anxiety; E87.2 Acidosis; I44.0 Atrioventricular block, first degree; I25.10 Atherosclerotic heart disease of native coronary artery without angina pectoris; E11.51 Type 2 diabetes mellitus with diabetic peripheral angiopathy without gangrene; G47.33 Obstructive sleep apnea (adult) (pediatric); N40.0 Benign prostatic hyperplasia without lower urinary tract symptoms; I25.2 Old myocardial infarction; M77.32 Calcaneal spur, left foot; Z79.4 Long term (current) use of insulin; Z79.82 Long term (current) use of aspirin; Z79.899 Other long term (current) drug therapy; Z88.5 Allergy status to narcotic agent; Z88.6 Allergy status to analgesic agent; Z88.7 Allergy status to serum and vaccine; Z96.641 Presence of right artificial hip joint; Z96.653 Presence of artificial knee joint, bilateral; Z86.73 Personal history of transient ischemic attack (TIA), and cerebral infarction without residual deficits; Z87.891 Personal history of nicotine dependence
CPT/HCPCS: 96366 ×3; 96367; 96365; 96376; 96372 ×3; J2543 ×9; J7030; J7050 ×10; J3370 ×2; J1650 ×2; J7620 ×2; J1815; 80048; 80053 ×2; 82948 ×7; 36415 ×5; 81001; 86140; 85025 ×3; 87040 ×2; 83690; 83735; 85730; 85610; 85651; 84484 ×2; 36416 ×6; 83605 ×2; 71045; 71046; 73610; 73630; 94640 ×2; 94760 ×5; 94664; 99285; 93005; G0378

== ENCOUNTER → 2019-10-30 | Outpatient (CLI) | payer MEDICARE, OTHER | LOC: GOCC 17:15 | PROVIDERS: ATTEND Internal Medicine | DX: E11.65 Type 2 diabetes mellitus with hyperglycemia (principal); E46 Unspecified protein-calorie malnutrition; G31.84 Mild cognitive impairment of uncertain or unknown etiology; N39.0 Urinary tract infection, site not specified ==

== ENCOUNTER → 2019-11-22 | Outpatient (CLI) | payer MEDICARE, MEDICAID | LOC: GOCC 21:49 | PROVIDERS: ATTEND Family Medicine | DX: R30.0 Dysuria (principal) ==

== ENCOUNTER 2019-11-26 10:02 | Emergency (ER) | payer MEDICARE, MEDICAID, OTHER ==
--- NOTE | 2019-11-26 10:21 | ED.PDOC ---
History of Present Illness - General Time Seen by Provider: 11/26/19 10:04 Additional Information: This is a 79-year-old female, with cervical artery disease hypertension COPD patient presents to the ER from group home facility after a fall, patient stated that he fell using his walker complaining of right hip and right groin pain, did hit his blood patient is not on blood thinners and denies LOC was able to be put on a wheelchair but was having trouble standing up. Patient is in his usual neurological baseline and is a former smoker Patient takes daily aspirin - History of Present Illness Occurred: just prior to arrival, this morning Injuries/Pain Location: head, lower extremity Reason for Fall: slipped Loss of Consciousness: no loss of consciousness Improving Factors: nothing Worsening Factors: nothing Associated Symptoms (Fall): denies symptoms Allergies/Adverse Reactions: Allergies Hydromorphone [From Dilaudid] Allergy (Verified 09/26/19 18:18) Morphine Allergy (Verified 09/26/19 18:18) NSAIDs Allergy (Verified 11/26/19 10:50) Tetanus Toxoid Allergy (Verified 09/26/19 18:18) Home Medications: Ambulatory Orders Atorvastatin Calcium [Lipitor] 20 mg PO BEDTIME 06/16/15 Fenofibrate [Tricor] 134 mg PO BEDTIME 06/16/15 Furosemide [Lasix] 40 mg PO BID 06/16/15 Lisinopril [Prinivil] 20 mg PO BID 06/16/15 Meclizine HCl 50 mg PO BEDTIME 06/16/15 Potassium Chloride Tab [Micro-K] 10 meq PO DAILY 06/16/15 Tiotropium [place] Monohydrate [Spiriva Handihaler] 18 mcg IN DAILY 06/16/15 Albuterol Sulfate Nebs [Proventil Nebs] 2.5 mg NEB RTQID #0 vial 07/22/15 Aspirin [Aspirin Childrens] 81 mg PO DAILY #0 07/22/15 Docusate Sodium [Colace] 100 mg PO DAILY PRN 02/26/17 Gabapentin [Neurontin] 300 mg PO BEDTIME 02/26/17 Insulin Glargine [Toujeo Solostar] 42 unit SC BID 02/26/17 Insulin Regular (Human) [Novolin R] 17 unit SC TIDFD #0 03/03/17 Arformoterol Tartrate Nebs [Brovana Nebs] 1 inh INH BID 09/26/19 Calcium 600 mg PO BID 09/26/19 Pantoprazole Sodium 40 mg PO DAILY 09/26/19 Doxycycline Hyclate [Vibramycin] 100 mg PO BID 14 Days #28 cap 09/28/19 Tramadol HCl 50 mg PO Q6HRS #24 tab 11/26/19 Review of Systems - Review of Systems Constitutional: States: no symptoms reported EENTM: States: no symptoms reported Respiratory: States: no symptoms reported Cardiology: States: no symptoms reported Gastrointestinal/Abdominal: States: no symptoms reported Genitourinary: States: no symptoms reported Musculoskeletal: States: no symptoms reported Skin: States: no symptoms reported Neurological: States: no symptoms reported Endocrine: States: no symptoms reported Hematologic/Lymphatic: States: no symptoms reported Past Medical History (General) - Patient Medical History Hx Seizures: No Hx Stroke: Yes Hx Dementia: Yes Hx Asthma: Yes Hx of COPD: Yes Hx Cardiac Disorders: Yes - [place] x1, heart failure Hx Congestive Heart Failure: Yes Hx Pacemaker: No Hx Hypertension: Yes Hx Thyroid Disease: No Hx Diabetes: Yes Hx Gastroesophageal Reflux: No Hx Renal Disease: No Hx Cancer: No Hx of HIV: No Hx Hepatitis C: No Hx MRSA: No - Vaccination History Hx Tetanus, Diphtheria Vaccination: No Hx Influenza Vaccination: Yes Hx Pneumococcal Vaccination: Yes - Social History Hx Tobacco Use: Yes Hx Alcohol Use: No Hx Substance Use: No Hx Substance Use Treatment: No Hx Depression: No Hx Physical Abuse: No Hx Emotional Abuse: No - Female History Patient : No Physical Exam - Physical Exam General Appearance: Alert, Well Developed, Well Groomed, Well Hydrated, Well Nourished Head Injury: no evidence of injury Eye Exam: bilateral normal ENT Exam: no evidence of ENT injury Peripheral Pulses: radial,right: 2+, radial,left: 2+ Cardiovascular/Respiratory: regular rate, rhythm, no M/R/G, normal peripheral pulses, no JVD, normal breath sounds, no respiratory distress Gastrointestinal/Abdominal: normal bowel sounds, non tender, soft, no organomegaly, no pulsatile mass Back Exam: normal inspection, no CVA tenderness, no vertebral tenderness Extremity Exam: no evidence of injury, other - adduction Point tenderness at the right hip but no evidence of shortening or internal rotation or adduction Neurologic: manager ct II-XII nml as tested, no motor/sensory deficits, alert, normal mood/affect, oriented x 3 - [place] Coma Score Best Eye Response (Laura): (4) open spontaneously Best Verbal Response ([place]): (5) oriented Best Motor Response (Laura): (6) obeys commands Laura Total: 15 Progress - Progress Progress: This is a 79-year-old patient that presents after mechanical fall from his walker, patient denies any losing consciousness did hit the back of his head, and he takes daily aspirin. Patient does have a neurological deficit given patient's age and risk factor for intracranial normalities, I ordered a head CT and cervical spine CT. Both studies were negative for any intracranial maladies or cervical fracture subluxation. He was complaining of right hip pain that he does have a history of a right hip replacement. X-rays of the pelvis did not show any fractures, and the hip x-rays did not show any abnormalities there was a potential for possible dislocation but patient is able to move the affected extremity without difficulty Patient is awake and alert and appears in no distress, given patient's extensive list of allergies will discharge patient home with tramadol for pain I also recommended ice packs to help with the pain 11/26/19 11:09 Departure - Departure Clinical Impression: Fall Qualifiers: Encounter type: initial encounter Qualified Code(s): W19.XXXA - Unspecified fall, initial encounter Hip sprain Qualifiers: Encounter type: initial encounter Laterality: right Qualified Code(s): S73.101A - Unspecified sprain of right hip, initial encounter Concussion Qualifiers: Encounter type: initial encounter Loss of consciousness presence/duration: without LOC Qualified Code(s): S06.0X0A - Concussion without loss of consciousness, initial encounter Disposition: Discharge to Home or Self Care Condition: Fair Instructions: Concussion in Adults, Hip Pain Referrals: PORTIA BOSS [Primary Care Provider] - 1-2 Weeks Prescriptions: Tramadol HCl 50 mg PO Q6HRS #24 tab Home Medications: Ambulatory Orders Atorvastatin Calcium [Lipitor] 20 mg PO BEDTIME 06/16/15 Fenofibrate [Tricor] 134 mg PO BEDTIME 06/16/15 Furosemide [Lasix] 40 mg PO BID 06/16/15 Lisinopril [Prinivil] 20 mg PO BID 06/16/15 Meclizine HCl 50 mg PO BEDTIME 06/16/15 Potassium Chloride Tab [Micro-K] 10 meq PO DAILY 06/16/15 Tiotropium [place] Monohydrate [Spiriva Handihaler] 18 mcg IN DAILY 06/16/15 Albuterol Sulfate Nebs [Proventil Nebs] 2.5 mg NEB RTQID #0 vial 07/22/15 Aspirin [Aspirin Childrens] 81 mg PO DAILY #0 07/22/15 Docusate Sodium [Colace] 100 mg PO DAILY PRN 02/26/17 Gabapentin [Neurontin] 300 mg PO BEDTIME 02/26/17 Insulin Glargine [Toujeo Solostar] 42 unit SC BID 02/26/17 Insulin Regular (Human) [Novolin R] 17 unit SC TIDFD #0 03/03/17 Arformoterol Tartrate Nebs [Brovana Nebs] 1 inh INH BID 09/26/19 Calcium 600 mg PO BID 09/26/19 Pantoprazole Sodium 40 mg PO DAILY 09/26/19 Doxycycline Hyclate [Vibramycin] 100 mg PO BID 14 Days #28 cap 09/28/19 Tramadol HCl 50 mg PO Q6HRS #24 tab 11/26/19 Additional Instructions: Return to the ER if there is any signs of altered mental status confusion still complaining of hip pain even with pain medications, or unable to walk due to hip pain
--- NOTE | 2019-11-26 11:00 | RAD ---
EXAM DESCRIPTION: Pelvis CLINICAL HISTORY: 79 years Male, fall COMPARISON: None. TECHNIQUE: AP radiograph of the pelvis was performed. FINDINGS: Visualized bones appear severely osteopenic. Right total hip arthroplasty with poor coverage of the femoral head prosthesis by the acetabular cup. Clinical correlation for subluxation/dislocation is recommended. Expansion of the left inferior pubic ramus can be seen with Paget's disease. Moderate left hip osteoarthritis. IMPRESSION: Right total hip arthroplasty with poor coverage of the femoral head prosthesis by the acetabular cup. Clinical correlation for subluxation/dislocation is recommended. Electronically signed by: Ana Weinstein MD 11/26/2019 10:58 AM CDT
--- NOTE | 2019-11-26 11:00 | RAD ---
EXAM DESCRIPTION: Hip,Right 2 Views CLINICAL HISTORY: 79 years Male, fall COMPARISON: None available. FINDINGS: The visualized bones are poorly mineralized.No acute fracture or dislocation. Right total hip arthroplasty with poor coverage of the femoral head prosthesis by the acetabular cup. Clinical correlation for subluxation/dislocation is recommended. The soft tissues appear grossly unremarkable. IMPRESSION: Right total hip arthroplasty with poor coverage of the femoral head prosthesis by the acetabular cup. Clinical correlation for subluxation/dislocation is recommended. Electronically signed by: Ana Weinstein MD 11/26/2019 10:59 AM CDT
--- NOTE | 2019-11-26 11:01 | CT ---
EXAM DESCRIPTION: Cervical Spine CLINICAL HISTORY: fall COMPARISON: None available. TECHNIQUE: Axial noncontast CT of the cervical spine with coronal and sagittal reformats. This exam was performed according to our departmental dose-optimization program, which includes automated exposure control, adjustment of the mA and/or kV according to patient size and/or use of iterative reconstruction technique. FINDINGS: Cervical vertebral body heights are maintained. 2 mm anterolisthesis of C3 on C4 with trace anterolisthesis of C2 on C3. Straightening of the normal cervical lordosis. Moderate anterior disc osteophytic ridging from C4 through C7. Ventral ridging disc osteophyte complexes from C3 through C6 contributes to moderate spinal canal stenosis at C3-4 and mild spinal canal stenosis from C4 through C6. Moderate to severe foraminal encroachment is seen from C3 through C6. Facet hypertrophic and degenerative changes are seen towards the left from C2 through C4 and right C2-C6. No acute fracture or posttraumatic positional abnormality of the cervical spine is seen. Mild curvature of the upper thoracic spine with convexity towards the right. Visualized skull base shows no acute findings. Fluid in the inferior left mastoid air cells is seen. Surgical clips from left carotid endarterectomy are seen. Moderate calcified plaque of the right carotid bulb. IMPRESSION: No CT evidence of acute fracture or posttraumatic positional abnormality of the cervical spine. Moderate to severe spondylitic changes and facet arthropathy of the cervical spine is seen most significant at C3-4 and C4-C6 with multilevel spinal canal stenosis and foraminal encroachment as described above. Electronically signed by: Baldomero Mendez MD 11/26/2019 10:59 AM CDT
--- NOTE | 2019-11-26 11:02 | CT ---
EXAM DESCRIPTION: Head CLINICAL HISTORY: fall COMPARISON: None TECHNIQUE: Noncontrast transaxial CT images of the head are obtained from base to vertex. This exam was performed according to our departmental dose-optimization program, which includes automated exposure control, adjustment of the mA and/or kV according to patient size and/or use of iterative reconstruction technique. FINDINGS: The midline structures are not displaced. Sulci are age-appropriate. There are areas of decreased attenuation in the periventricular white matter and the white matter of the centrum semiovale. There is no evidence of mass, mass-effect, hydrocephalus, or acute intracranial hemorrhage. No abnormal extra axial fluid collection is seen. Severe calcifications of the intracranial carotid arteries. Banding of the left ocular globe is seen. Bone windows show no evidence of depressed skull fracture. The visualized paranasal sinuses shows mild mucosal thickening in the floor the left maxillary sinus. Deviation of the bony nasal septum towards the left is seen.. Fluid in the inferior left mastoid air cells without bone destructive changes. IMPRESSION: 1. Age-appropriate atrophy with evidence of old small vessel ischemic type changes seen. 2. No acute abnormality is seen on noncontrast CT of the head. Electronically signed by: Baldomero Mendez MD 11/26/2019 11:01 AM CDT
[2019-11-26 11:57] VITALS: BP 155/81; TEMP 97.5; O2SAT 92
== END 2019-11-26 11:45 ==
LOC: ER 10:02
DX: S73.101A Unspecified sprain of right hip, initial encounter (principal); S06.0X0A Concussion without loss of consciousness, initial encounter; E11.9 Type 2 diabetes mellitus without complications; I50.9 Heart failure, unspecified; I25.2 Old myocardial infarction; J44.9 Chronic obstructive pulmonary disease, unspecified; I11.0 Hypertensive heart disease with heart failure; Z79.82 Long term (current) use of aspirin; Z79.4 Long term (current) use of insulin; W18.30XA Fall on same level, unspecified, initial encounter; Y92.129 Unspecified place in nursing home as the place of occurrence of the external cause

== ENCOUNTER 2019-11-28 09:36 | Observation (INO) | payer MEDICARE, OTHER ==
--- NOTE | 2019-11-28 10:03 | RAD ---
: 1940. Technique: Portable AP chest x-ray. Comparison: None. Clinical history: AMS. Heart size: Enlarged heart. Lungs: Shallow inspiration with bronchovascular crowding. No acute consolidation. Pleura: No pleural effusion. No pneumothorax. Mediastinum and ingrid: Unremarkable. Skeletal: Unremarkable. Support tubings: None. Impression: 1. Cardiomegaly and shallow inspiration. Electronically signed by: Manjeet Vieyra MD 11/28/2019 10:01 AM CDT
--- NOTE | 2019-11-28 10:07 | ED.PDOC ---
History of Present Illness - General Chief Complaint: General Stated Complaint: Double vision, SNF staff stated "hallucinations" Time Seen by Provider: 11/28/19 09:40 - History of Present Illness Initial Comments: 79-year-old male sent from correction by staff after he was reportedly more confused than usual. Was seen in the emergency room recently after a fall, had a negative head CT and C-spine, and x-rays. On arrival, the patient was without complaint, mentioned double vision to nursing staff, but is currently not complaining of that to me. States his groin has continued to hurt after the fall. From the med list, he was prescribed tramadol unclear his current dosing schedule. His history is limited by his dementia. Allergies/Adverse Reactions: Allergies Hydromorphone [From Dilaudid] Allergy (Verified 11/28/19 09:58) Morphine Allergy (Verified 11/28/19 09:58) NSAIDs Allergy (Verified 11/28/19 09:58) Tetanus Toxoid Allergy (Verified 11/28/19 09:58) Home Medications: Ambulatory Orders Atorvastatin Calcium [Lipitor] 20 mg PO BEDTIME 06/16/15 Fenofibrate [Tricor] 134 mg PO BEDTIME 06/16/15 Furosemide [Lasix] 40 mg PO BID 06/16/15 Lisinopril [Prinivil] 20 mg PO BID 06/16/15 Meclizine HCl 50 mg PO BEDTIME 06/16/15 Potassium Chloride Tab [Micro-K] 10 meq PO DAILY 06/16/15 Tiotropium [place] Monohydrate [Spiriva Handihaler] 18 mcg IN DAILY 06/16/15 Albuterol Sulfate Nebs [Proventil Nebs] 2.5 mg NEB RTQID #0 vial 07/22/15 Aspirin [Aspirin Childrens] 81 mg PO DAILY #0 07/22/15 Docusate Sodium [Colace] 100 mg PO DAILY PRN 02/26/17 Gabapentin [Neurontin] 300 mg PO BEDTIME 02/26/17 Insulin Glargine [Toujeo Solostar] 42 unit SC BID 02/26/17 Insulin Regular (Human) [Novolin R] 17 unit SC TIDFD #0 03/03/17 Arformoterol Tartrate Nebs [Brovana Nebs] 1 inh INH BID 09/26/19 Calcium 600 mg PO BID 09/26/19 Pantoprazole Sodium 40 mg PO DAILY 09/26/19 Acetaminophen [Acetaminophen Extra Stren] 500 mg PO Q6H PRN 11/26/19 Ascorbic Acid [Vitamin C 500 mg] 1 tab PO DAILY 11/26/19 Promethazine HCl 25 mg PO Q6H PRN 11/26/19 Tramadol HCl 50 mg PO Q6HRS #24 tab 11/26/19 Past Medical History (General) - Patient Medical History Hx Seizures: No Hx Stroke: Yes Hx Dementia: Yes Hx Asthma: Yes Hx of COPD: Yes Hx Cardiac Disorders: Yes - SC x1, heart failure Hx Congestive Heart Failure: Yes Hx Pacemaker: No Hx Hypertension: Yes Hx Thyroid Disease: No Hx Diabetes: Yes Hx Gastroesophageal Reflux: No Hx Renal Disease: No Hx Cancer: No Hx of HIV: No Hx Hepatitis C: No Hx MRSA: No - Vaccination History Hx Tetanus, Diphtheria Vaccination: No Hx Influenza Vaccination: Yes Hx Pneumococcal Vaccination: Yes - Social History Hx Tobacco Use: Yes Hx Alcohol Use: No Hx Substance Use: No Hx Substance Use Treatment: No Hx Depression: No Hx Physical Abuse: No Hx Emotional Abuse: No - Female History Patient : No Family Medical History - Family History Mother Family History: No Known Living Status: Hx Family Asthma: Yes Hx Cardiac Disease: Yes Hx Family Diabetes: Yes Father Family History: No Known Living Status: Physical Exam - Physical Exam Comments: General Appearance: Patient is awake and alert. appears elderly. Skin: Warm and dry. No diaphoresis. No rash or other lesions. Head: Normocephalic/atraumatic. Eyes: PERRL, lids, conjunctiva and sclera unremarkable. EOMI intact. no dysconjugate gaze. ENT: No nasal discharge. Oropharynx. Without erythema, exudate, lesions. Moist mucous membranes. Neck: Supple. No LAD. No tenderness. No JVD noted. Respiratory: Normal rate and effort. Breath sounds clear bilaterally. Cardiovascular: Regular rate. Heart sounds normal. No murmur. GI: Abdomen obese, soft, non-distended and non-tender. No rebound/guarding. Bowel sounds normal. Back: No tenderness Musculoskeletal: Extremities- Normal range of motion. No effusion, cyanosis, edema. Neurological: Alert. No facial palsy. Speech clear. Gag intact. No motor deficit, str symmetric. No sensory deficit. Progress - Progress Progress: 11/28/19 10:14 Vital Signs - 24 hr 11/28/19 11/28/19 09:40 09:44 Temperature 97.0 F L Pulse Rate [ 85 85 Pulse ox] Respiratory 20 20 Rate Blood Pressure 123/80 [R brachial] O2 Sat by Pulse 94 L Oximetry - Results/Orders Results/Orders: 11/28/19 09:43 Sodium Chloride 0.9% (Flush) [Saline Flush Syringe] 10 ml IV PRN PRN 11/28/19 09:44 EKG Stat Pulse Ox Stat URINALYSIS Stat 11/28/19 10:43 Sodium Chloride 0.9% 1000ML [Ns 1000 ml] 1,000 ml IVS .QD 11/28/19 11:08 ABG [Arterial Blood Gas] Stat Vital Signs - 24 hr 11/28/19 11/28/19 11/28/19 09:40 09:44 10:14 Temperature 97.0 F L Pulse Rate [ 85 85 Pulse ox] Respiratory 20 20 Rate Blood Pressure 123/80 [R brachial] O2 Sat by Pulse 94 L 94 L Oximetry 11/28/19 11/28/19 11:00 11:41 Temperature 97.6 F Pulse Rate [ 73 Pulse ox] Respiratory 12 Rate Blood Pressure 127/77 [R brachial] O2 Sat by Pulse 98 Oximetry Screening labs with acute kidney injury, moderate uremia. Discussed with hospitalist, will plan 23-hour observation, gentle resuscitation. 11/28/19 09:43 Sodium Chloride 0.9% (Flush) [Saline Flush Syringe] 10 ml IV PRN PRN 11/28/19 09:44 EKG Stat Pulse Ox Stat URINALYSIS Stat 11/28/19 10:43 Sodium Chloride 0.9% 1000ML [Ns 1000 ml] 1,000 ml IVS .QD 11/28/19 11:41 ED Intent to Admit Routine Laboratory Results WBC 10.4 K/mm3 (4.8-10.8) 11/28/19 01:00 RBC 4.52 M/mm3 (4.70-6.10) L 11/28/19 01:00 Hgb 14.2 gm/dL (14.0-18.0) 11/28/19 01:00 Hct 42.3 % (42.0-52.0) 11/28/19 01:00 MCV 93.6 fl (80.0-94.0) 11/28/19 01:00 MCH 31.4 pg (27.0-31.0) H 11/28/19 01:00 MCHC 33.6 g/dL (33.0-37.0) 11/28/19 01:00 RDW 14.0 % (11.5-14.5) 11/28/19 01:00 Plt Count 290 K/mm3 (130-400) 11/28/19 01:00 MPV 9.0 fl (7.40-10.4) 11/28/19 01:00 Absolute Neuts (auto) 6.40 K/uL (1.8-6.8) 11/28/19 01:00 Absolute Lymphs (auto) 2.40 K/uL (1.0-3.4) 11/28/19 01:00 Absolute Monos (auto) 0.80 K/uL (0.2-0.8) 11/28/19 01:00 Absolute Eos (auto) 0.60 K/uL (0.0-0.4) H 11/28/19 01:00 Absolute Basos (auto) 0.10 K/uL (0.0-0.1) 11/28/19 01:00 Neutrophils % 61.7 % (42.0-78.0) 11/28/19 01:00 Lymphocytes % 23.0 % (20.0-50.0) 11/28/19 01:00 Monocytes % 8.0 % (2.0-9.0) 11/28/19 01:00 Eosinophils % 5.9 % (1.0-5.0) H 11/28/19 01:00 Basophils % 1.4 % (0.0-2.0) 11/28/19 01:00 pCO2 38 mmHg (35-48) 11/28/19 11:08 pO2 63 mmHg (83-108) L 11/28/19 11:08 HCO3 25.5 mmol/L 11/28/19 11:08 ABG pH 7.434 (7.35-7.45) 11/28/19 11:08 ABG O2 Saturation 93.5 % (95.0-99.0) L 11/28/19 11:08 ABG Base Excess 1.3 mmol/L 11/28/19 11:08 ABG Deoxyhemoglobin 6.4 % (0.0-5.0) H 11/28/19 11:08 Oxyhemoglobin % 91.7 % (94.0-98.0) L 11/28/19 11:08 Carboxyhemoglobin % 1.1 % (0.5-1.5) 11/28/19 11:08 Methemoglobin % Sat 0.8 % (0.0-1.5) 11/28/19 11:08 Calc Total Hemoglobin 14.9 g/dL (13.5-17.5) 11/28/19 11:08 Sodium 137 mmol/L (135-145) 11/28/19 01:00 Potassium 5.5 mmol/L (3.6-5.0) H 11/28/19 01:00 Chloride 103 mmol/L (101-111) 11/28/19 01:00 Carbon Dioxide 23 mmol/L (21-31) 11/28/19 01:00 Anion Gap 16.5 (12-18) 11/28/19 01:00 BUN 59 mg/dL (7-18) H 11/28/19 01:00 Creatinine 3.74 mg/dL (0.6-1.3) H 11/28/19 01:00 BUN/Creatinine Ratio 15.8 (10-20) 11/28/19 01:00 Random Glucose 225 mg/dL (70-105) H 11/28/19 01:00 Serum Osmolality 297.4 mOsm/L (275-295) H 11/28/19 01:00 Lactic Acid 1.8 mmol/L (0.5-2.2) 11/28/19 01:00 Calcium 8.9 mg/dL (8.4-10.2) 11/28/19 01:00 Total Bilirubin 0.9 mg/dL (0.2-1.0) 11/28/19 01:00 AST 16 IU/L (10-42) 11/28/19 01:00 ALT 14 IU/L (10-60) 11/28/19 01:00 Alkaline Phosphatase 54 IU/L (42-121) 11/28/19 01:00 Serum Total Protein 7.3 gm/dL (6.4-8.2) 11/28/19 01:00 Albumin 3.3 g/dl (3.2-5.5) 11/28/19 01:00 Globulin 4.0 gm/dL (2.3-3.5) H 11/28/19 01:00 Albumin/Globulin Ratio 0.8 (1.1-1.9) L 11/28/19 01:00 - EKG/XRAY/CT EKG: Sinus - 83, nonspecific ST T wave Chg Comments: 1st deg AVB Departure - Departure Clinical Impression: Acute kidney injury Time of Disposition: 11:40 Disposition: Admit Patient Condition: Fair Home Medications: Ambulatory Orders Atorvastatin Calcium [Lipitor] 20 mg PO BEDTIME 06/16/15 Fenofibrate [Tricor] 134 mg PO BEDTIME 06/16/15 Furosemide [Lasix] 40 mg PO BID 06/16/15 Lisinopril [Prinivil] 20 mg PO BID 06/16/15 Meclizine HCl 50 mg PO BEDTIME 06/16/15 Potassium Chloride Tab [Micro-K] 10 meq PO DAILY 06/16/15 Tiotropium [place] Monohydrate [Spiriva Handihaler] 18 mcg IN DAILY 06/16/15 Albuterol Sulfate Nebs [Proventil Nebs] 2.5 mg NEB RTQID #0 vial 07/22/15 Aspirin [Aspirin Childrens] 81 mg PO DAILY #0 07/22/15 Docusate Sodium [Colace] 100 mg PO DAILY PRN 02/26/17 Gabapentin [Neurontin] 300 mg PO BEDTIME 02/26/17 Insulin Glargine [Toujeo Solostar] 42 unit SC BID 02/26/17 Insulin Regular (Human) [Novolin R] 17 unit SC TIDFD #0 03/03/17 Arformoterol Tartrate Nebs [Brovana Nebs] 1 inh INH BID 09/26/19 Calcium 600 mg PO BID 09/26/19 Pantoprazole Sodium 40 mg PO DAILY 09/26/19 Acetaminophen [Acetaminophen Extra Stren] 500 mg PO Q6H PRN 11/26/19 Ascorbic Acid [Vitamin C 500 mg] 1 tab PO DAILY 11/26/19 Promethazine HCl 25 mg PO Q6H PRN 11/26/19 Tramadol HCl 50 mg PO Q6HRS #24 tab 11/26/19 Comments: Bert Elias MD Emergency Medicine #[id number] Decision To Admit - Decistion To Admit Decision to Admit Reason: Admit from ER Decision to Admit Date: 11/28/19 Decision to Admit Time: 11:39
[2019-11-28] MEDS: SODIUM CHLORIDE 0.9% (FLUSH) 10 ML SYG IV PRN ×2 (10:28→10:52)
[2019-11-28] MEDS ORDERED: SODIUM CHLORIDE 0.9% 1000ML 1,000 ML IVS PRN (10:43)
[2019-11-28] MEDS ORDERED: ONDANSETRON INJ 4 MG/2 ML VIAL IV PRN (13:03)
[2019-11-28] MEDS ORDERED: SODIUM CHLORIDE 0.9% (FLUSH) 10 ML SYG IV PRN (13:03)
[2019-11-28] MEDS ORDERED: ACETAMINOPHEN 325 MG TAB PO PRN (13:03)
[2019-11-28] MEDS ORDERED: MAGNESIUM HYDROXIDE 30 ML UD PO PRN (13:03)
[2019-11-28] MEDS ORDERED: ALUM & MAG HYDROX-SIMETHICONE 30 ML UD PO PRN (13:03)
[2019-11-28] MEDS ORDERED: GLUCAGON INJ 1 MG VIAL SUBCU PRN (13:05)
[2019-11-28] MEDS ORDERED: DEXTROSE 50% 25 GM/50 ML SYG IV PRN (13:05)
[2019-11-28] MEDS ORDERED: IV SET AND CAP CHANGE INJ INJ SCH (13:30)
--- NOTE | 2019-11-28 15:32 | HP ---
SUPERVISING PHYSICIAN: Benji Murillo MD CHIEF COMPLAINT: Hallucinations per staff members. HISTORY OF PRESENT ILLNESS: Mr. Ricks is a 79 year-old male patient who resides at [facility]. He presented to the Emergency Room this morning via 911 reportedly being confused more than usual. He was seen in the Emergency Room recently after a fall but had a negative CT of the head, C-spine and other x-rays. On arrival, the patient was without any significant complaints. He does endorse that he felt like something was crawling on him this morning but he has not seen anything. He does have some pain in his groin status post fall and last Emergency Room visit but denies any new complaints. He does have a history of dementia and therefore is limited to a full history and physical. More records are obtained from Emergency Room notes and past history and physical admissions. Initial laboratory studies showed he had a normal white count without a left shift. Blood gas analysis showed just a mildly low P02 of 63, oxygen saturation 93% but he does wear a 2- liter nasal cannula due to a history of congestive heart failure at the [facility]. Review of his medications show he is on Lasix 80 mg daily and he does endorse that he does pee a lot and does not keep up with his fluids and always stays dry and thirsty. His chemistries today did show he had an elevated creatinine of 3.79 with a BUN of 59, potassium 5.5 initially, normal lactic acid. Liver functions are all within normal limits. Review of his past labs show his baseline creatinine appears to be running around 1.9 to 2.3. X-rays today of the chest per radiology interpretation showed cardiomegaly with shallow inspirations but no acute consolidations or pleural effusions or pneumothorax. His vital signs on initial presentation showed he was hemodynamically stable, afebrile with a temperature of 97, pulse 85, blood pressure 123/80, oxygen saturation 94% on room air, respirations 20. Given his elevated creatinine, BUN and what appears to be clinical dehydration in a patient who is on high-dose of Lasix, he will be placed in observation for fluid management given his history of congestive heart failure, to slowly rehydrate without causing complications. He is in stable condition. PAST MEDICAL HISTORY: 1. Congestive heart failure, diastolic, with last echocardiogram in 2015 showed an ejection fraction between 65 and 70%. 2. Diabetes mellitus, type 2, on insulin. 3. Dementia. 4. Hypertension. 5. Hyperlipidemia. 6. Peripheral vascular disease. 7. Obstructive sleep apnea. 8. Idiopathic pulmonary fibrosis. 9 History of myocardial infarction. 10. Chronic obstructive pulmonary disease. 11. Benign prostatic hypertrophy. PAST SURGICAL HISTORY: 1. Right hip replacement. 2. Bilateral elbow surgery. 3. Bilateral knee replacements. CURRENT MEDICATIONS: Awaiting updated list from the [facility]. Please see in the electric medical records. ALLERGIES: Hydromorphone, morphine, NSAIDS, tetanus toxoid. FAMILY HISTORY: Not known and noncontributory. SOCIAL HISTORY: Patient is . He has previously lived with his sister but currently lives at [facility]. He has a longstanding history of smoking tobacco but quit 20 years previous. He denies alcohol or illicit drug use. REVIEW OF SYSTEMS: CONSTITUTIONAL: Denies general malaise, denies fevers, chills, unexplained weight loss. HEENT: Denies headaches. vision changes, sore throat. nasal congestion, earaches. CHEST: As noted in the history of present illness. Exertional shortness of breath as well as orthopnea. No wheezing or coughing. He does have some shortness of breath just after he wears oxygen 24/7. HEART: Negative for chest pain, palpitations, syncopal episodes, tachycardia.. ABDOMEN: Negative for nausea, vomiting, diarrhea or constipation or abdominal pains. GENITOURINARY: Denies dysuria, hematuria or polyuria. MUSCULOSKELETAL: Denies arthralgias, joint swelling. SKIN: Denies lesions, rashes, moles or unexplained changes. NEUROLOGIC: Notes he felt a little confused but denies ataxia, seizures, or other focal deficits. No vision changes, headaches, migraines. HEMATOLOGICAL: Denies unexplained bleeding, easy bruising or transfusion reactions. PHYSICAL EXAMINATION: VITAL SIGNS: Temperature 97.6, pulse 75, blood pressure 134/70, respirations 20, oxygen saturation 95% on room air. GENERAL: The patient was resting comfortably, did not appear to be in any acute distress, is alert, appears well-nourished, well-hydrated. HEENT: Tympanic membranes are clear bilaterally. Oropharynx is pink with notable dry mucous membranes, cracked lips. No lesions. NECK: Supple, non-tender, full range of motion, no jugular venous distention. CHEST: Lung sounds were clear, just diminished toward the bases without rhonchi, rales, or wheezes. CARDIOVASCULAR: Regular rate and rhythm without appreciable murmurs, rubs, or gallops. ABDOMEN: Obese, soft, non-tender, positive bowel sounds. EXTREMITIES: Without cyanosis, clubbing, or edema. NEUROLOGIC: Cranial nerves II through XII are grossly intact. Facial features were symmetrical. Extraocular movements within normal limits. There was no notable nystagmus. He was alert and oriented x3. SKIN: Warm, pink and dry. LABORATORY: White count 10,400, hemoglobin 14.2, hematocrit 42.3, platelet count 290,000, differential showed to be without a left shift. Blood gas analysis showed normal pH of 7.34, PC02 of 38, P02 of 63 with a bicarb of 25.5. Base excess 1.3. Chemistries showed just a mildly elevated potassium at 5.5, otherwise electrolytes were within normal limits. His BUN was elevated at 59, BUN 3.74. Blood sugars were initially elevated at 225, liver functions all within normal limits. Lactic acid normal at 0.8. Urinalysis is pending. EKG in the Emergency Room showed a sinus rhythm without any ST or T-wave changes, nonspecific changes but there was note of first degree AV block, no acute changes compared to previous. RADIOLOGY: Chest x-ray showed no acute findings. ASSESSMENT: 1. Acute on chronic renal failure, likely exacerbation from prerenal azotemia from dehydration. 2. Chronic obstructive pulmonary disease without any signs of exacerbation. 3. Congestive heart failure with a diastolic dysfunction with last echocardiogram in 2016 showing ejection fraction between 65 and 70% with no signs of any exacerbation. 4. Electrolyte balance to include hyperkalemia. 5. Diabetes mellitus type 2 on insulin. 7. History of peripheral vascular disease. 8. Obstructive sleep apnea. 9. Idiopathic pulmonary fibrosis. 10. History of previous myocardial infarctions. 11. Benign prostatic hypertrophy. PLAN: Mr. Ricks is going to placed in observation for slow fluids given his advanced age and past history of congestive heart failure, also for close monitoring of his urine output. We have started him on IV fluids, will do half- normal saline with rate at 80 an hour given his history of congestive heart failure. Will resume his medications as soon as they are updated and verified. He is on DVT prophylaxis per protocol. Will await a urinalysis. I anticipate his length of stay to be 2 to 3 days. Until we can transition him to outpatient management, we will continue to monitor and treat as needed. #[id number] [facility]
[2019-11-28] MEDS: ALBUTEROL SULFATE 2.5 MG/3 ML VIAL NEB SCH ×2 (16:37→20:45)
[2019-11-28] MEDS: INSULIN LISPRO 100 UNITS/ML PEN SUBCU SCH ×2 (17:06→21:18)
[2019-11-28] MEDS: SODIUM CHLORIDE 0.45% 1000ML 1,000 ML IVS PRN (19:03)
[2019-11-28] MEDS: ARFORMOTEROL TARTRATE 15 MCG/2 ML NEB NEB SCH (20:00)
[2019-11-28] MEDS ORDERED: LISINOPRIL 10 MG TAB PO SCH (21:00)
[2019-11-28] MEDS ORDERED: ENOXAPARIN SODIUM 40 MG/0.4 ML SYG SUBCU SCH (21:00)
[2019-11-28] MEDS: GABAPENTIN 300 MG CAP PO SCH (21:17)
[2019-11-28] MEDS: MECLIZINE HCL 12.5 MG TAB PO SCH (21:17)
[2019-11-28] MEDS: ATORVASTATIN 20 MG TAB PO SCH (21:17)
[2019-11-28] MEDS: INSULIN DETEMIR 100 UNITS/ML PEN SUBCU SCH (21:18)
[2019-11-29] MEDS: PANTOPRAZOLE SODIUM TAB 40 MG PO SCH (06:17)
[2019-11-29] MEDS: INSULIN LISPRO 100 UNITS/ML PEN SUBCU SCH ×4 (07:06→20:57)
[2019-11-29] MEDS: SODIUM CHLORIDE 0.45% 1000ML 1,000 ML IVS PRN ×2 (07:08→20:11)
[2019-11-29] MEDS ORDERED: TIOTROPIUM INHALER INH SCH (08:00)
[2019-11-29] MEDS: ARFORMOTEROL TARTRATE 15 MCG/2 ML NEB NEB SCH ×2 (08:00→20:30)
[2019-11-29] MEDS: ALBUTEROL SULFATE 2.5 MG/3 ML VIAL NEB SCH ×4 (08:05→20:35)
[2019-11-29] MEDS: ASPIRIN (CHEWABLE) 81 MG TAB PO SCH (09:23)
[2019-11-29] MEDS: LOSARTAN POTASSIUM 100 MG TAB PO SCH (09:26)
[2019-11-29] MEDS: INSULIN DETEMIR 100 UNITS/ML PEN SUBCU SCH ×2 (10:20→20:59)
--- NOTE | 2019-11-29 13:52 | PN ---
SUPERVISING PHYSICIAN: Sarbjit Baires MD DATE: 11/29/19 SUBJECTIVE: The patient is without any complaints at this time. He is lying in bed resting without any distress. OBJECTIVE: VITAL SIGNS: Blood pressure 116/69. Heart rate 76. Respiratory rate 20. Temperature 97.2. Oxygen saturation 98%. GENERAL: Mr. Ricks is a 79-year-old male patient who is in no active distress currently. NEUROLOGIC: Alert and able to follow commands without difficulty. LUNGS: A little bit diminished in the bases, but otherwise clear to auscultation bilaterally. CARDIOVASCULAR: Regular rate and rhythm. Normal S1, S2. ABDOMEN: Soft. Positive bowel sounds. GENITOURINARY: Deferred. EXTREMITIES: Lower extremities with no edema. ASSESSMENT: 1. Acute on chronic renal failure. 2. Chronic obstructive pulmonary disease with no exacerbation. 3. History of diastolic heart failure with no exacerbation. 4. Electrolyte balance, improved. 5. Diabetes mellitus, type 2. 7. History of peripheral vascular disease. 8. Obstructive sleep apnea. 9. Pulmonary fibrosis. 10. History of myocardial infarctions in the past. 11. Benign prostatic hypertrophy. PLAN: There is a slight increase in his creatinine today. I will continue to hold his diuretics and continue with IV fluids for another 24 hours. We will recheck his labs in the morning. If they are improved, we will send him back. He originally came for some hallucinations and at this point he is not having any of that. Therefore, if he has improvement in his BUN and creatinine, I would suggest he go back to the assisted living or nursing facility and reduce the dose of diuretics he was on. #[id number] [facility]
[2019-11-29] MEDS: MECLIZINE HCL 12.5 MG TAB PO SCH (20:18)
[2019-11-29] MEDS: GABAPENTIN 300 MG CAP PO SCH (20:18)
[2019-11-29] MEDS: ATORVASTATIN 20 MG TAB PO SCH (20:18)
[2019-11-29] MEDS ORDERED: ENOXAPARIN SODIUM 30 MG/0.3 ML SYG SUBCU SCH (21:00)
[2019-11-30] MEDS: PANTOPRAZOLE SODIUM TAB 40 MG PO SCH (05:56)
[2019-11-30] MEDS: INSULIN LISPRO 100 UNITS/ML PEN SUBCU SCH (07:10)
[2019-11-30] MEDS ORDERED: TIOTROPIUM INHALER INH SCH (08:00)
[2019-11-30] MEDS ORDERED: ARFORMOTEROL TARTRATE 15 MCG/2 ML NEB NEB SCH (08:00)
[2019-11-30] MEDS: ALBUTEROL SULFATE 2.5 MG/3 ML VIAL NEB SCH (09:07)
[2019-11-30 09:11] VITALS: BP 144/73; TEMP 98.1
[2019-11-30] MEDS: LOSARTAN POTASSIUM 100 MG TAB PO SCH (09:18)
[2019-11-30] MEDS: ASPIRIN (CHEWABLE) 81 MG TAB PO SCH (09:18)
[2019-11-30] MEDS: INSULIN DETEMIR 100 UNITS/ML PEN SUBCU SCH (09:18)
[2019-11-30 09:21] VITALS: O2SAT 96
--- NOTE | 2019-11-30 10:51 | DS ---
SUPERVISING PHYSICIAN: Sarbjit Baries MD ADMISSION DIAGNOSIS: 1. Acute on chronic renal failure. 2. Chronic obstructive pulmonary disease with no exacerbation. 3. congestive heart failure due to diastolic dysfunction with no acute exacerbation. 4. Electrolyte balance to include hyperkalemia. 5. Diabetes mellitus, type 2, on insulin. 7. History of peripheral vascular disease. 8. Obstructive sleep apnea. 9. Idiopathic pulmonary fibrosis. 10. History of previous myocardial infarctions. 11. Benign prostatic hypertrophy. DISCHARGE DIAGNOSIS: 1. Acute on chronic renal failure. 2. Chronic obstructive pulmonary disease with no exacerbation. 3. congestive heart failure due to diastolic dysfunction with no acute exacerbation. 4. Electrolyte balance to include hyperkalemia. 5. Diabetes mellitus, type 2, on insulin. 7. History of peripheral vascular disease. 8. Obstructive sleep apnea. 9. Idiopathic pulmonary fibrosis. 10. History of previous myocardial infarctions. 11. Benign prostatic hypertrophy. HOSPITAL COURSE: This is a 79-year-old male who came to the Emergency Room from [facility] with altered mental status. Apparently he had a fall recently and was seen in the ER. Workup was negative at that time. The patient denies any complaints, but did have a feeling of something crawling on him in the morning. His workup included labs and films in the ER. He had an elevated creatinine of 3.79 and potassium 5.5. He has a history of elevated creatinine. He was also taking 80 mg of Lasix daily. Therefore, the patient was referred for admission for slow rehydration and monitoring of his renal function. Over his stay here, his diuretics were held. He had a subsequent creatinine of 3.85, but recheck this morning was 3.38. Therefore, he did have some improvement. He felt better and is much more alert. Therefore, he will be discharged today in stable condition. I have recommended reducing his Lasix to once a day in addition to changing his lisinopril to Cozaar. He will need followup labs as an outpatient. Activity is as tolerated. Diet is usual diet. All other medications will stay the same. #[id number] [facility]
== END 2019-11-30 09:54 ==
LOC: ER 09:36 → MS 11:54
PROVIDERS: ADMIT Nurse Practitioner Family; ATTEND Nurse Practitioner
DX: N17.9 Acute kidney failure, unspecified (principal); I13.0 Hypertensive heart and chronic kidney disease with heart failure and stage 1 through stage 4 chronic kidney disease, or unspecified chronic kidney disease; N18.9 Chronic kidney disease, unspecified; J44.9 Chronic obstructive pulmonary disease, unspecified; I50.32 Chronic diastolic (congestive) heart failure; E87.5 Hyperkalemia; E87.8 Other disorders of electrolyte and fluid balance, not elsewhere classified; E86.0 Dehydration; E11.22 Type 2 diabetes mellitus with diabetic chronic kidney disease; E11.65 Type 2 diabetes mellitus with hyperglycemia; E11.51 Type 2 diabetes mellitus with diabetic peripheral angiopathy without gangrene; I44.0 Atrioventricular block, first degree; G47.33 Obstructive sleep apnea (adult) (pediatric); J84.112 Idiopathic pulmonary fibrosis; N40.0 Benign prostatic hyperplasia without lower urinary tract symptoms; F03.90 Unspecified dementia, unspecified severity, without behavioral disturbance, psychotic disturbance, mood disturbance, and anxiety; E78.5 Hyperlipidemia, unspecified; I25.2 Old myocardial infarction; Z79.4 Long term (current) use of insulin; Z79.51 Long term (current) use of inhaled steroids; Z79.82 Long term (current) use of aspirin; Z79.899 Other long term (current) drug therapy; Z96.641 Presence of right artificial hip joint; Z96.653 Presence of artificial knee joint, bilateral; Z86.73 Personal history of transient ischemic attack (TIA), and cerebral infarction without residual deficits; Z88.6 Allergy status to analgesic agent; Z88.8 Allergy status to other drugs, medicaments and biological substances; Z88.7 Allergy status to serum and vaccine
CPT/HCPCS: 96360; 96361 ×2; 96372 ×3; J7611 ×7; J1650 ×2; J7799 ×3; J7030; J1815 ×2; 80048 ×2; 80053; 82948 ×11; 36415 ×4; 81001; 85025; 36416 ×7; 83605; 71045; 94640 ×7; 94760 ×6; 82803; 36600; 82805; 94664; 99285; 93005; G0378

== ENCOUNTER → 2019-12-06 | Outpatient (CLI) | payer MEDICARE, OTHER | LOC: GOCC 16:45 | PROVIDERS: ATTEND Family Medicine | DX: R30.0 Dysuria (principal) ==

== ENCOUNTER 2019-12-07 20:46 | Emergency (ER) | payer MEDICARE, MEDICAID ==
[2019-12-07 21:06] VITALS: TEMP 98.2
--- NOTE | 2019-12-07 21:06 | ED.PDOC ---
History of Present Illness - General Chief Complaint: General Stated Complaint: elevated lab results Time Seen by Provider: 12/07/19 20:54 Source: EMS, retirement records, old records Exam Limitations: clinical condition, physical impairment Additional Information: The patient is a 79 year old male who is brought to the ED for hyperkalemia. He has a history of dementia and has limited ability to provide history which is obtained from the retirement records and EMS personnel. He has a history of DM, HTN, CKD, COPD and CHF. EMS reports that he has been "altered" for a few weeks. Chart review shows that he was recently admitted to this hospital for acute kidney injury in the setting of chronic kidney disease. The retirement reports that he is at his baseline and they are primarily concerned for his hyperkalemia. No other history is available at this time. - History of Present Illness Allergies/Adverse Reactions: Allergies Hydromorphone [From Dilaudid] Allergy (Verified 11/28/19 09:58) Morphine Allergy (Verified 11/28/19 09:58) NSAIDs Allergy (Verified 11/28/19 09:58) Tetanus Toxoid Allergy (Verified 11/28/19 09:58) Home Medications: Ambulatory Orders Atorvastatin Calcium [Lipitor] 20 mg PO BEDTIME 06/16/15 Fenofibrate [Tricor] 134 mg PO BEDTIME 06/16/15 Meclizine HCl 50 mg PO BEDTIME 06/16/15 Tiotropium [place] Monohydrate [Spiriva Handihaler] 18 mcg IN DAILY 06/16/15 Albuterol Sulfate Nebs [Proventil Nebs] 2.5 mg NEB RTQID #0 vial 07/22/15 Aspirin [Aspirin Childrens] 81 mg PO DAILY #0 07/22/15 Docusate Sodium [Colace] 100 mg PO DAILY PRN 02/26/17 Gabapentin [Neurontin] 300 mg PO BEDTIME 02/26/17 Insulin Glargine [Toujeo Solostar] 42 unit SC BID 02/26/17 Insulin Regular (Human) [Novolin R] 17 unit SC TIDFD #0 03/03/17 Arformoterol Tartrate Nebs [Brovana Nebs] 1 inh INH BID 09/26/19 Calcium 600 mg PO BID 09/26/19 Pantoprazole Sodium 40 mg PO DAILY 09/26/19 Acetaminophen [Acetaminophen Extra Stren] 500 mg PO Q6H PRN 11/26/19 Ascorbic Acid [Vitamin C 500 mg] 1 tab PO DAILY 11/26/19 Promethazine HCl 25 mg PO Q6H PRN 11/26/19 Tramadol HCl 50 mg PO Q6HRS #24 tab 11/26/19 Furosemide 40 mg PO DAILY 30 Days #30 tab 11/30/19 Losartan Potassium [Cozaar] 100 mg PO DAILY 30 Days #30 tab 11/30/19 Review of Systems - Review of Systems Unable to Obtain Due To: dementia, clinical condition Past Medical History (General) - Patient Medical History Hx Seizures: No Hx Stroke: Yes Hx Dementia: Yes Hx Asthma: Yes Hx of COPD: Yes Hx Cardiac Disorders: Yes - [place] x1, heart failure Hx Congestive Heart Failure: Yes Hx Pacemaker: No Hx Hypertension: Yes Hx Thyroid Disease: No Hx Diabetes: Yes Hx Gastroesophageal Reflux: No Hx Renal Disease: No Hx Cancer: No Hx of HIV: No Hx Hepatitis C: No Hx MRSA: No - Vaccination History Hx Tetanus, Diphtheria Vaccination: No Hx Influenza Vaccination: Yes Hx Pneumococcal Vaccination: Yes - Social History Hx Tobacco Use: Yes Hx Alcohol Use: No Hx Substance Use: No Hx Substance Use Treatment: No Hx Depression: No Hx Physical Abuse: No Hx Emotional Abuse: No - Female History Patient : No Family Medical History - Family History Mother Family History: No Known Living Status: Hx Family Asthma: Yes Hx Cardiac Disease: Yes Hx Family Diabetes: Yes Father Family History: No Known Living Status: Physical Exam - Physical Exam General Appearance: Agitated, Anxious, Ill Appearing, Obese Neck: non-tender, full range of motion, supple, normal inspection Respiratory: lungs clear, normal breath sounds, no respiratory distress, no accessory muscle use Cardiovascular/Chest: normal peripheral pulses, regular rate, rhythm Gastrointestinal/Abdominal: non tender, soft Extremity: normal range of motion, normal capillary refill, pedal edema Neurologic: abnormal gait, depressed affect Progress - Progress Progress: 12/07/19 22:48 Discussed with retirement, they confirm that the patient is at his baseline and that they are only concerned for elevated potassium. Suspect hemolyzed sample as he has only mildly elevated potassium here. Workup is otherwise unremarkable. He has CKD which is actually improved over most recent hospitalization. Okay to return to nursing facility. - Results/Orders Results/Orders: 12/07/19 21:03 URINALYSIS Stat 12/07/19 21:15 EKG STAT Laboratory Results - last 24 hr 12/07/19 12/07/19 21:05 21:05 WBC 7.9 RBC 4.55 L Hgb 14.3 Hct 43.3 MCV 95.2 H MCH 31.4 H MCHC 32.9 L RDW 14.0 Plt Count 362 MPV 8.7 Absolute Neuts (auto) 4.40 Absolute Lymphs (auto) 2.20 Absolute Monos (auto) 0.70 Absolute Eos (auto) 0.50 H Absolute Basos (auto) 0.10 Neutrophils % 56.0 Lymphocytes % 27.6 Monocytes % 9.1 H Eosinophils % 5.8 H Basophils % 1.5 Sodium 141 Potassium 5.4 H Chloride 109 Carbon Dioxide 25 Anion Gap 12.4 BUN 66 H Creatinine 3.04 H BUN/Creatinine Ratio 21.7 H Random Glucose 220 H Serum Osmolality 307.1 H Calcium 9.6 Total Bilirubin 0.5 AST 20 ALT 15 Alkaline Phosphatase 97 Serum Total Protein 7.8 Albumin 3.7 Globulin 4.1 H Albumin/Globulin Ratio 0.9 L - EKG/XRAY/CT Comments: 2111 normal sinus rhythm, 1st deg AV block, prolonged QT, nl axis, no STEMI Departure - Departure Clinical Impression: Hyperkalemia Chronic kidney disease Qualifiers: Chronic kidney disease stage: unspecified stage Qualified Code(s): N18.9 - Chronic kidney disease, unspecified Time of Disposition: 22:52 Disposition: Discharge to SNF Condition: Fair Departure Forms: ED Discharge - Pt. Copy, Patient Portal Self Enrollment Instructions: Chronic Kidney Disease (DC) Diet: other - Renal Diet Activity: increase activity as tolerated Referrals: KALINA HALL MD [Primary Care Provider] - 1-2 Weeks Home Medications: Ambulatory Orders Atorvastatin Calcium [Lipitor] 20 mg PO BEDTIME 06/16/15 Fenofibrate [Tricor] 134 mg PO BEDTIME 06/16/15 Meclizine HCl 50 mg PO BEDTIME 06/16/15 Tiotropium [place] Monohydrate [Spiriva Handihaler] 18 mcg IN DAILY 06/16/15 Albuterol Sulfate Nebs [Proventil Nebs] 2.5 mg NEB RTQID #0 vial 07/22/15 Aspirin [Aspirin Childrens] 81 mg PO DAILY #0 01/09/16 Docusate Sodium [Colace] 100 mg PO DAILY PRN 02/26/17 Gabapentin [Neurontin] 300 mg PO BEDTIME 02/26/17 Insulin Glargine [Toujeo Solostar] 42 unit SC BID 02/26/17 Insulin Regular (Human) [Novolin R] 17 unit SC TIDFD #0 03/03/17 Arformoterol Tartrate Nebs [Brovana Nebs] 1 inh INH BID 09/26/19 Calcium 600 mg PO BID 09/26/19 Pantoprazole Sodium 40 mg PO DAILY 09/26/19 Acetaminophen [Acetaminophen Extra Stren] 500 mg PO Q6H PRN 11/26/19 Ascorbic Acid [Vitamin C 500 mg] 1 tab PO DAILY 11/26/19 Promethazine HCl 25 mg PO Q6H PRN 11/26/19 Tramadol HCl 50 mg PO Q6HRS #24 tab 11/26/19 Furosemide 40 mg PO DAILY 30 Days #30 tab 11/30/19 Losartan Potassium [Cozaar] 100 mg PO DAILY 30 Days #30 tab 11/30/19
--- NOTE | 2019-12-07 22:05 | RAD ---
EXAM DESCRIPTION: Chest, x-ray 1 View CLINICAL HISTORY: shortness of breath COMPARISON: None FINDINGS: Cardiac silhouette is within normal limits. There is atherosclerosis. Linear opacities in the left mid/lower lung may represent scar versus subsegmental atelectasis. There is no confluent parenchymal or pleural disease. There is no acute osseous process visualized. IMPRESSION: Linear opacities in the left mid/lower lung may represent scar versus subsegmental atelectasis. Electronically signed by: Caleb Matamoros MD 12/07/2019 10:03 PM CDT
--- NOTE | 2019-12-07 22:08 | CT ---
PROCEDURE: CT Head CLINICAL HISTORY: 79 years Male altered mental status TECHNIQUE: Contiguous axial CT images obtained through the brain without IV contrast. Coronal and sagittal reformatted images also provided. This CT exam was performed according to our departmental dose-optimization program, which includes one or more of the following dose reduction techniques: automated exposure control, adjustment of the mA and/or kV according to patient size, and/or use of iterative reconstruction technique. COMPARISON: 11/26/2019 FINDINGS: There is no intracranial hemorrhage, extraaxial collection, or evidence of acute transcortical infarction. Scattered foci of low attenuation within the periventricular and subcortical white matter are stable and compatible with chronic microvascular disease. There is stable moderate diffuse volume loss without mass effect or midline shift. Again seen are diffuse atherosclerotic calcifications and severe chronic left maxillary sinusitis. The remainder of the paranasal sinuses and mastoid air cells are clear. Debris noted within the bilateral external auditory canals, compatible with cerumen. IMPRESSION: Stable chronic intracranial findings. No acute intracranial abnormality. Severe chronic left maxillary sinusitis. Cerumen within both external auditory canals. Electronically signed by: Vera Alonso MD 12/07/2019 10:07 PM CDT
[2019-12-07 23:06] VITALS: BP 150/103; O2SAT 96
== END 2019-12-07 23:17 ==
LOC: ER 20:46
DX: E87.5 Hyperkalemia (principal); I13.0 Hypertensive heart and chronic kidney disease with heart failure and stage 1 through stage 4 chronic kidney disease, or unspecified chronic kidney disease; E11.22 Type 2 diabetes mellitus with diabetic chronic kidney disease; N18.9 Chronic kidney disease, unspecified; I50.9 Heart failure, unspecified; J44.9 Chronic obstructive pulmonary disease, unspecified; Z79.4 Long term (current) use of insulin; Z79.82 Long term (current) use of aspirin; Z79.899 Other long term (current) drug therapy

== ENCOUNTER 2019-12-10 15:45 | Observation (INO) | payer MEDICARE, OTHER ==
--- NOTE | 2019-12-10 18:46 | CT ---
EXAM: CT Abdomen and Pelvis Without Intravenous Contrast CLINICAL HISTORY: Right inguinal pain, reported blood in stool TECHNIQUE: Axial computed tomography images of the abdomen and pelvis without intravenous contrast. Sagittal and coronal reformatted images were created and reviewed. This CT exam was performed using one or more of the following dose reduction techniques: automated exposure control, adjustment of the mA and/or kV according to patient size, and/or use of iterative reconstruction technique. COMPARISON: 12/31/[address] chest 05/03/2013. FINDINGS: Lung bases: 6 mm noncalcified left lower lobe pulmonary nodule unchanged. No further evaluation of this nodule considered necessary. Stable basilar fibrotic changes compared to the most recent exam new since 2012. There is mild superimposed basilar atelectasis. ABDOMEN: Liver: Unremarkable. Gallbladder and bile ducts: Unremarkable. No calcified stones. No ductal dilation. Pancreas: Unremarkable. No ductal dilation. Spleen: Unremarkable. No splenomegaly. Adrenals: Unremarkable. No mass. Kidneys and ureters: Unremarkable. No obstructing stones. No hydronephrosis. Stomach and bowel: There is moderate colonic stool and scattered diverticulosis. No diverticulitis. No obstruction. PELVIS: Appendix: The appendix is well-seen and appears normal. Bladder: Unremarkable. No stones. Reproductive: Unremarkable as visualized. ABDOMEN and PELVIS: Intraperitoneal space: Unremarkable. No free air. No significant fluid collection. Bones/joints: There is a new acute fracture of the right inferior pubic ramus. Degenerative changes present in the spine and hips with right hip prosthesis present. There are chronic bilateral L5 pars defects with grade 1 L5-S1 anterolisthesis. No dislocation. Soft tissues: There is a small fat containing umbilical hernia noted. Vasculature: Atherosclerosis noted. No aneurysm. Lymph nodes: Unremarkable. No enlarged lymph nodes. IMPRESSION: Chronic changes as above. No acute disease. Electronically signed by: Pratima Becerril MD 12/10/2019 6:44 PM CDT
[2019-12-10] MEDS ORDERED: cloNIDine HCL 0.1 MG TAB PO ONE (19:07)
--- NOTE | 2019-12-10 19:14 | ED.PDOC ---
History of Present Illness - General Chief Complaint: General Stated Complaint: "blood in stool" Time Seen by Provider: 12/10/19 16:16 Source: patient, RN notes reviewed, Vital Signs reviewed, EMS notes reviewed, care home records Exam Limitations: other - Dementia - History of Present Illness Initial Comments: This is a 79-year-old male with history of stage IV CKD, diabetes, dementia sent from care home for blood in stool noted by care home staff earlier today. He does not take any blood thinners. He is complaining of some right inguinal pain, but states he is unsure how long it has been there. History is limited due to patient's dementia Allergies/Adverse Reactions: Allergies Hydromorphone [From Dilaudid] Allergy (Verified 11/28/19 09:58) Morphine Allergy (Verified 11/28/19 09:58) NSAIDs Allergy (Verified 11/28/19 09:58) Tetanus Toxoid Allergy (Verified 11/28/19 09:58) Home Medications: Ambulatory Orders Atorvastatin Calcium [Lipitor] 20 mg PO BEDTIME 06/16/15 Fenofibrate [Tricor] 134 mg PO BEDTIME 06/16/15 Meclizine HCl 50 mg PO BEDTIME 06/16/15 Tiotropium [place] Monohydrate [Spiriva Handihaler] 18 mcg IN DAILY 06/16/15 Albuterol Sulfate Nebs [Proventil Nebs] 2.5 mg NEB RTQID #0 vial 07/22/15 Aspirin [Aspirin Childrens] 81 mg PO DAILY #0 07/22/15 Docusate Sodium [Colace] 100 mg PO DAILY PRN 02/26/17 Gabapentin [Neurontin] 300 mg PO BEDTIME 02/26/17 Insulin Glargine [Toujeo Solostar] 42 unit SC BID 02/26/17 Insulin Regular (Human) [Novolin R] 17 unit SC TIDFD #0 03/03/17 Arformoterol Tartrate Nebs [Brovana Nebs] 1 inh INH BID 09/26/19 Calcium 600 mg PO BID 09/26/19 Pantoprazole Sodium 40 mg PO DAILY 09/26/19 Acetaminophen [Acetaminophen Extra Stren] 500 mg PO Q6H PRN 11/26/19 Ascorbic Acid [Vitamin C 500 mg] 1 tab PO DAILY 11/26/19 Promethazine HCl 25 mg PO Q6H PRN 11/26/19 Tramadol HCl 50 mg PO Q6HRS #24 tab 11/26/19 Furosemide 40 mg PO DAILY 30 Days #30 tab 11/30/19 Losartan Potassium [Cozaar] 100 mg PO DAILY 30 Days #30 tab 11/30/19 Review of Systems - Review of Systems Gastrointestinal/Abdominal: States: abdominal pain, other - Blood in stool Unable to Obtain Due To: dementia Past Medical History (General) - Patient Medical History Hx Seizures: No Hx Stroke: Yes Hx Dementia: Yes Hx Asthma: Yes Hx of COPD: Yes Hx Cardiac Disorders: Yes - CT x1, heart failure Hx Congestive Heart Failure: Yes Hx Pacemaker: No Hx Hypertension: Yes Hx Thyroid Disease: No Hx Diabetes: Yes Hx Gastroesophageal Reflux: No Hx Renal Disease: No Hx Cancer: No Hx of HIV: No Hx Hepatitis C: No Hx MRSA: No - Vaccination History Hx Tetanus, Diphtheria Vaccination: No Hx Influenza Vaccination: Yes Hx Pneumococcal Vaccination: Yes - Social History Hx Tobacco Use: Yes Hx Alcohol Use: No Hx Substance Use: No Hx Substance Use Treatment: No Hx Depression: No Hx Physical Abuse: No Hx Emotional Abuse: No - Activities of Daily Living Correction/Assisted Living (if applicable):: [facility] (if applicable):: None - Female History Patient is a Female of Child Bearing Age (10 -59 yrs old): No Patient : No - Triage Comment ED Triage Comment: pt caregiver from [facility] reports that pt started having blood in stool today. Family Medical History - Family History Mother Family History: No Known Living Status: Hx Family Asthma: Yes Hx Cardiac Disease: Yes Hx Family Diabetes: Yes Father Family History: No Known Living Status: Physical Exam - Physical Exam General Appearance: Alert, Comfortable, No apparent distress Ears, Nose, Throat: hearing grossly normal, normal pharynx Neck: non-tender, full range of motion, supple Respiratory: lungs clear, normal breath sounds, no respiratory distress, no accessory muscle use Cardiovascular/Chest: normal peripheral pulses, regular rate, rhythm, no edema, no gallop, no JVD Gastrointestinal/Abdominal: normal bowel sounds, soft, tenderness - Mild right inguinal tenderness, no palpable hernias, no rebound/guarding Rectal Exam: normal exam, normal rectal tone, heme positive stool, other - Brown stool, heme positive Back Exam: normal inspection, no CVA tenderness, no vertebral tenderness Extremity: non-tender, normal inspection Neurologic: no motor/sensory deficits, alert, normal mood/affect, other - Oriented to person and place, not time Skin Exam: normal color, warm/dry Progress - Progress Progress: 12/10/19 17:54 Reviewed old records. Patient had CT in 2019 that showed extensive diverticulosis without diverticulitis. Longstanding history of CKD, prior creatinine readings on recent ER visits greater than 3. Today 2.7. Baseline hemoglobin appears to be approximately 14. 12/10/19 19:14 Discussed with Rosa Dailey nurse practitioner. We will obs for repeat CBC in a.m. Strongly suspect diverticular bleed given history of diverticulosis. CT negative. Vital signs reassuring, he is hypertensive, no hypotension on this exam. No tachycardia. I have low suspicion that GI will need to be involved emergently. 12/10/19 19:28 Rechecked. Discussed plan for observation. Patient agrees. Abdomen remains benign. Lungs clear. DDX: Upper versus lower GI bleeding, anemia, diverticular bleed vs AVM vs mass MDM: Elderly male with history of dementia presenting with suspected lower GI bleeding. Strongly suspect diverticular bleeding is the likely source given CT showing diverticulosis. Hemoglobin stable, vital signs reassuring. I do not think he needs GI emergently, I do not feel EGD/colonoscopy will be necessary for him at this time. Will place in observation for repeat CBC in a.m. Jamey Villalobos DO [facility] #[id number] - Results/Orders Results/Orders: EKG reviewed by me at 1638. Sinus rhythm with first-degree AV block, rate of [address] segment elevations or depression EXAM: CT Abdomen and Pelvis Without Intravenous Contrast CLINICAL HISTORY: Right inguinal pain, reported blood in stool TECHNIQUE: Axial computed tomography images of the abdomen and pelvis without intravenous contrast. Sagittal and coronal reformatted images were created and reviewed. This CT exam was performed using one or more of the following dose reduction techniques: automated exposure control, adjustment of the mA and/or kV according to patient size, and/or use of iterative reconstruction technique. COMPARISON: 12/31/[address] chest 05/03/2013. FINDINGS: Lung bases: 6 mm noncalcified left lower lobe pulmonary nodule unchanged. No further evaluation of this nodule considered necessary. Stable basilar fibrotic changes compared to the most recent exam new since 2012. There is mild superimposed basilar atelectasis. ABDOMEN: Liver: Unremarkable. Gallbladder and bile ducts: Unremarkable. No calcified stones. No ductal dilation. Pancreas: Unremarkable. No ductal dilation. Spleen: Unremarkable. No splenomegaly. Adrenals: Unremarkable. No mass. Kidneys and ureters: Unremarkable. No obstructing stones. No hydronephrosis. Stomach and bowel: There is moderate colonic stool and scattered diverticulosis. No diverticulitis. No obstruction. PELVIS: Appendix: The appendix is well-seen and appears normal. Bladder: Unremarkable. No stones. Reproductive: Unremarkable as visualized. ABDOMEN and PELVIS: Intraperitoneal space: Unremarkable. No free air. No significant fluid collection. Bones/joints: There is a new acute fracture of the right inferior pubic ramus. Degenerative changes present in the spine and hips with right hip prosthesis present. There are chronic bilateral L5 pars defects with grade 1 L5-S1 anterolisthesis. No dislocation. Soft tissues: There is a small fat containing umbilical hernia noted. Vasculature: Atherosclerosis noted. No aneurysm. Lymph nodes: Unremarkable. No enlarged lymph nodes. IMPRESSION: Chronic changes as above. No acute disease. Electronically signed by: Pratima Becerril MD 12/10/2019 6:44 PM 12/10/19 16:29 Hold Metformin x 48Hrs [id number] 12/10/19 16:30 EKG STAT Laboratory Results - last 24 hr 12/10/19 12/10/19 12/10/19 16:35 16:58 16:58 WBC 8.1 RBC 4.27 L Hgb 13.7 L Hct 40.4 L MCV 94.6 H MCH 32.0 H MCHC 33.8 RDW 14.2 Plt Count 356 MPV 8.9 Absolute Neuts (auto) 4.80 Absolute Lymphs (auto) 2.00 Absolute Monos (auto) 0.60 Absolute Eos (auto) 0.70 H Absolute Basos (auto) 0.00 Neutrophils % 59.5 Lymphocytes % 24.8 Monocytes % 7.3 Eosinophils % 8.1 H Basophils % 0.3 Sodium 140 Potassium 5.1 H Chloride 108 Carbon Dioxide 24 Anion Gap 13.1 BUN 62 H Creatinine 2.73 H BUN/Creatinine Ratio 22.7 H Random Glucose 239 H Serum Osmolality 304.8 H Calcium 8.8 Total Bilirubin 0.7 AST 20 ALT 16 Alkaline Phosphatase 96 Serum Total Protein 7.3 Albumin 3.3 Globulin 4.0 H Albumin/Globulin Ratio 0.8 L Lipase 24 Stool Occult Blood Positive Departure - Departure Clinical Impression: Acute lower GI bleeding, Diverticulosis, Stage 4 chronic kidney disease Dementia Qualifiers: Dementia type: unspecified type Dementia behavioral disturbance: without behavioral disturbance Qualified Code(s): F03.90 - Unspecified dementia without behavioral disturbance Time of Disposition: 19:19 Disposition: Admit Patient Departure Forms: ED Discharge - Pt. Copy, Patient Portal Self Enrollment Referrals: KALINA HALL MD [Primary Care Provider] - 1-2 Weeks Home Medications: Ambulatory Orders Atorvastatin Calcium [Lipitor] 20 mg PO BEDTIME 06/16/15 Fenofibrate [Tricor] 134 mg PO BEDTIME 06/16/15 Meclizine HCl 50 mg PO BEDTIME 06/16/15 Tiotropium [place] Monohydrate [Spiriva Handihaler] 18 mcg IN DAILY 06/16/15 Albuterol Sulfate Nebs [Proventil Nebs] 2.5 mg NEB RTQID #0 vial 07/22/15 Aspirin [Aspirin Childrens] 81 mg PO DAILY #0 07/22/15 Docusate Sodium [Colace] 100 mg PO DAILY PRN 02/26/17 Gabapentin [Neurontin] 300 mg PO BEDTIME 02/26/17 Insulin Glargine [Toujeo Solostar] 42 unit SC BID 02/26/17 Insulin Regular (Human) [Novolin R] 17 unit SC TIDFD #0 03/03/17 Arformoterol Tartrate Nebs [Brovana Nebs] 1 inh INH BID 09/26/19 Calcium 600 mg PO BID 09/26/19 Pantoprazole Sodium 40 mg PO DAILY 09/26/19 Acetaminophen [Acetaminophen Extra Stren] 500 mg PO Q6H PRN 11/26/19 Ascorbic Acid [Vitamin C 500 mg] 1 tab PO DAILY 11/26/19 Promethazine HCl 25 mg PO Q6H PRN 11/26/19 Tramadol HCl 50 mg PO Q6HRS #24 tab 11/26/19 Furosemide 40 mg PO DAILY 30 Days #30 tab 11/30/19 Losartan Potassium [Cozaar] 100 mg PO DAILY 30 Days #30 tab 11/30/19
--- NOTE | 2019-12-10 20:16 | RAD ---
EXAM DESCRIPTION: XR Chest, 1 View CLINICAL HISTORY: 79 years Male SOB TECHNIQUE: One view of the chest. COMPARISON: 12/07/2019 FINDINGS: Hazy left perihilar airspace infiltrates. Right basilar atelectasis. No pleural effusion or pneumothorax. Stable cardiomediastinal silhouette. No acute osseous lesion. IMPRESSION: There are hazy left perihilar airspace infiltrates concerning for infection. Electronically signed by: Vera Alonso MD 12/10/2019 8:14 PM CDT
[2019-12-10] MEDS ORDERED: SODIUM CHLORIDE 0.9% (FLUSH) 10 ML SYG IV PRN (20:53)
[2019-12-10] MEDS ORDERED: ACETAMINOPHEN 325 MG TAB PO PRN (20:53)
[2019-12-10] MEDS ORDERED: ONDANSETRON INJ 4 MG/2 ML VIAL IV PRN (20:53)
[2019-12-10] MEDS ORDERED: IV SET AND CAP CHANGE INJ INJ SCH (21:00)
[2019-12-10] MEDS ORDERED: MECLIZINE HCL 50 MG PO SCH (21:00)
[2019-12-10] MEDS ORDERED: ALBUTEROL SULFATE 2.5 MG/3 ML VIAL NEB PRN (21:11)
[2019-12-10] MEDS ORDERED: MECLIZINE HCL 12.5 MG TAB ONE (21:32)
[2019-12-10] MEDS: SODIUM CHLORIDE 0.9% (FLUSH) 10 ML SYG IV SCH (21:35)
[2019-12-10] MEDS ORDERED: DEXTROSE 50% 25 GM/50 ML SYG IV PRN (21:59)
[2019-12-10] MEDS ORDERED: GLUCAGON INJ 1 MG VIAL SUBCU PRN (21:59)
[2019-12-11 06:13] VITALS: O2SAT 100
[2019-12-11] MEDS ORDERED: INSULIN LISPRO 100 UNITS/ML PEN SUBCU SCH (07:00)
[2019-12-11] MEDS ORDERED: ALBUTEROL SULFATE 2.5 MG/3 ML VIAL NEB SCH (08:00)
[2019-12-11] MEDS ORDERED: LOSARTAN POTASSIUM 100 MG TAB PO SCH (09:00)
[2019-12-11] MEDS ORDERED: ARFORMOTEROL TARTRATE 15 MCG/2 ML NEB NEB SCH (09:00)
[2019-12-11] MEDS ORDERED: FUROSEMIDE 40 MG TAB PO SCH (09:00)
[2019-12-11] MEDS ORDERED: TIOTROPIUM INHALER INH SCH (09:00)
[2019-12-11] MEDS ORDERED: PANTOPRAZOLE SODIUM TAB 40 MG PO SCH (09:00)
[2019-12-11] MEDS ORDERED: NYSTATIN POWDER 15GM BTTL TOP SCH (09:00)
[2019-12-11] MEDS ORDERED: DOCUSATE SODIUM 100 MG CAP PO SCH (09:00)
[2019-12-11 09:17] VITALS: BP 151/79; TEMP 97.7
[2019-12-11] MEDS: SODIUM CHLORIDE 0.9% (FLUSH) 10 ML SYG IV SCH (09:26)
[2019-12-11] MEDS ORDERED: ATORVASTATIN 20 MG TAB PO SCH (21:00)
[2019-12-11] MEDS ORDERED: GABAPENTIN 300 MG CAP PO SCH (21:00)
[2019-12-11] MEDS ORDERED: MECLIZINE HCL 12.5 MG TAB PO SCH (21:00)
[2019-12-11] MEDS ORDERED: FENOFIBRIC ACID 135 MG CAP PO SCH (21:00)
--- NOTE | 2019-12-13 08:16 | SSS ---
SUPERVISING PHYSICIAN: Zeke Gonzalez MD DISCHARGE DIAGNOSES: 1. Diverticular disease with a small chronic diverticular bleed with no CT evidence of diverticulitis. 2. Chronic obstructive pulmonary disease without exacerbation. 3. Congestive heart failure with diastolic dysfunction, last echocardiogram in 2016. There are no signs of any exacerbation. 4. Diabetes mellitus type 2, on insulin. 5. History of PVD. 6. Obstructive sleep apnea. 7. Idiopathic pulmonary fibrosis. 8. History of previous myocardial infarction. 9. Benign prostatic hyperplasia. HISTORY OF PRESENT ILLNESS: This is a 79 year-old male patient who has stage 4 chronic kidney disease, diabetes and dementia. He came to the hospital Emergency Room from the long-term due to blood in his stools found earlier. He is currently on no blood thinners. There was some right inguinal pain but it was difficult to ascertain how long the pain has been going on due to the patient's dementia. He had also been in the Emergency Room on 12/05 and 12/06 and had actually been in the hospital on 11/28/19 for acute kidney injury. His admitting vital signs showed a temperature of 98, heart rate 81, blood pressure 155/83, respiratory rate 16, oxygen saturation 94% on room air. His lab studies showed a WBC of 8.2 with a hemoglobin of 13.7, hematocrit 40.4. Electrolytes were unremarkable. His liver enzymes were unremarkable. Stool for occult blood was positive. Abdomen and pelvis CT showed no acute abnormalities but there is moderate colonic stool and scattered diverticulosis with no diverticulitis. HOSPITAL COURSE: The patient had no further evidence of bleeding. His serial hemoglobin and hematocrit studies were stable. He will be discharged to [facility] in stable condition. His followup hemoglobin was 12.7, hematocrit 38.3. This morning it was 13.2 and 39.7. Chest x-ray showed a hazy left perihilar airspace infiltrate concerning for infection DISCHARGE PLAN: The patient will be discharged back to [facility] in stable condition. He is to resume his previous diet and activity as well as his previous medications. He is to followup with Dr. Murillo in one to two weeks with hemoglobin and hematocrit study at that time. He may need to have a GI consultation with Dr. Murillo and the patient can discuss that at his followup appointment. He is to return to the hospital or followup with Dr. Murillo for any problems or complications. #[id number] [facility]
== END 2019-12-11 11:45 ==
LOC: ER 15:45 → MS 19:40
PROVIDERS: ADMIT Nurse Practitioner Acute Care; ATTEND Nurse Practitioner Acute Care
DX: K57.31 Diverticulosis of large intestine without perforation or abscess with bleeding (principal); K92.1 Melena; J44.9 Chronic obstructive pulmonary disease, unspecified; I13.0 Hypertensive heart and chronic kidney disease with heart failure and stage 1 through stage 4 chronic kidney disease, or unspecified chronic kidney disease; I50.32 Chronic diastolic (congestive) heart failure; E11.51 Type 2 diabetes mellitus with diabetic peripheral angiopathy without gangrene; G47.33 Obstructive sleep apnea (adult) (pediatric); J84.112 Idiopathic pulmonary fibrosis; N40.0 Benign prostatic hyperplasia without lower urinary tract symptoms; E11.22 Type 2 diabetes mellitus with diabetic chronic kidney disease; N18.4 Chronic kidney disease, stage 4 (severe); F03.90 Unspecified dementia, unspecified severity, without behavioral disturbance, psychotic disturbance, mood disturbance, and anxiety; I25.2 Old myocardial infarction; I44.0 Atrioventricular block, first degree; R91.1 Solitary pulmonary nodule; Z79.4 Long term (current) use of insulin; Z79.82 Long term (current) use of aspirin; Z79.51 Long term (current) use of inhaled steroids; Z79.899 Other long term (current) drug therapy; Z88.5 Allergy status to narcotic agent; Z88.6 Allergy status to analgesic agent; Z88.7 Allergy status to serum and vaccine; Z88.8 Allergy status to other drugs, medicaments and biological substances; Z86.73 Personal history of transient ischemic attack (TIA), and cerebral infarction without residual deficits; Z87.891 Personal history of nicotine dependence; Z82.49 Family history of ischemic heart disease and other diseases of the circulatory system; Z83.3 Family history of diabetes mellitus; Z82.5 Family history of asthma and other chronic lower respiratory diseases
CPT/HCPCS: A4216; 82270; 80053 ×2; 82948 ×2; 85014; 85018; 36415 ×2; 85025 ×2; 83690; 36416 ×2; 71045; 74176; 94760 ×2; 99285; 93005

== ENCOUNTER 2019-12-22 15:14 | Emergency (ER) | payer MEDICARE, OTHER ==
[2019-12-22] MEDS ORDERED: SODIUM CHLORIDE 0.9% (FLUSH) 10 ML SYG IV PRN (15:25)
--- NOTE | 2019-12-22 15:41 | ED.PDOC ---
History of Present Illness - General Chief Complaint: Upper Extremity Injury Time Seen by Provider: 12/22/19 15:24 Source: patient, EMS, [facility] records Exam Limitations: other - some slow responses - History of Present Illness Occurred: just prior to arrival Pain - Upper Extremity: moderate: Shoulder, left Method of Injury: fell Improving Factors: immobilization Worsening Factors: movement Allergies/Adverse Reactions: Allergies Hydromorphone [From Dilaudid] Allergy (Verified 11/28/19 09:58) Morphine Allergy (Verified 11/28/19 09:58) NSAIDs Allergy (Verified 11/28/19 09:58) Tetanus Toxoid Allergy (Verified 11/28/19 09:58) Home Medications: Ambulatory Orders Atorvastatin Calcium [Lipitor] 20 mg PO BEDTIME 06/16/15 Fenofibrate [Tricor] 134 mg PO BEDTIME 06/16/15 Meclizine HCl 50 mg PO BEDTIME 06/16/15 Tiotropium [place] Monohydrate [Spiriva Handihaler] 18 mcg IN DAILY 06/16/15 Albuterol Sulfate Nebs [Proventil Nebs] 2.5 mg NEB RTQID #0 vial 07/22/15 Aspirin [Aspirin Childrens] 81 mg PO DAILY #0 07/22/15 Docusate Sodium [Colace] 100 mg PO DAILY 02/26/17 Gabapentin [Neurontin] 300 mg PO BEDTIME 02/26/17 Insulin Glargine [Toujeo Solostar] 42 unit SC BID 02/26/17 Insulin Regular (Human) [Novolin R] 17 unit SC TIDFD #0 03/03/17 Arformoterol Tartrate Nebs [Brovana Nebs] 1 inh INH BID 09/26/19 Calcium 600 mg PO BID 09/26/19 Pantoprazole Sodium 40 mg PO DAILY 09/26/19 Acetaminophen [Acetaminophen Extra Stren] 500 mg PO Q6H PRN 11/26/19 Ascorbic Acid [Vitamin C 500 mg] 1 tab PO DAILY 11/26/19 Promethazine HCl 25 mg PO Q6H PRN 11/26/19 Furosemide 40 mg PO DAILY 30 Days #30 tab 11/30/19 Losartan Potassium [Cozaar] 100 mg PO DAILY 30 Days #30 tab 11/30/19 Insulin Regular (Human) [Novolin R] See Protocol SC AC 12/10/19 Nystatin Powder 1 applic TOP BID 12/10/19 Acetaminophen W/ Codeine [Tylenol W/ CODEINE #3] 1 ea PO Q6HR PRN #20 12/22/19 Review of Systems - Review of Systems Constitutional: States: no symptoms reported EENTM: States: no symptoms reported Respiratory: States: cough Cardiology: States: no symptoms reported Gastrointestinal/Abdominal: States: no symptoms reported Genitourinary: States: no symptoms reported Musculoskeletal: States: joint pain Skin: States: lesions Neurological: States: no symptoms reported Hematologic/Lymphatic: States: no symptoms reported Unable to Obtain Due To: other - Unsure of accuracy of ROS Past Medical History (General) - Patient Medical History Hx Seizures: No Hx Stroke: No Hx Dementia: Yes Hx Asthma: No Hx of COPD: Yes Hx Cardiac Disorders: Yes - [place] x1, heart failure Hx Congestive Heart Failure: Yes Hx Pacemaker: No Hx Hypertension: No Hx Thyroid Disease: No Hx Diabetes: Yes Hx Gastroesophageal Reflux: No Hx Renal Disease: No Hx Cancer: No Hx of HIV: No Hx Hepatitis C: No Hx MRSA: No - Vaccination History Hx Tetanus, Diphtheria Vaccination: No Hx Influenza Vaccination: Yes Hx Pneumococcal Vaccination: Yes - Social History Hx Tobacco Use: Yes Hx Alcohol Use: No Hx Substance Use: No Hx Substance Use Treatment: No Hx Depression: No Hx Physical Abuse: No Hx Emotional Abuse: No - Female History Patient : No Family Medical History - Family History Mother Family History: No Known Living Status: Hx Family Asthma: Yes Hx Cardiac Disease: Yes Hx Family Diabetes: Yes Father Family History: No Known Living Status: Physical Exam - Physical Exam General Appearance: Alert Eyes, Ears, Nose, Throat Exam: PERRL/EOMI, normal ENT inspection, pharynx normal Neck: non-tender, full range of motion, supple, normal inspection Cardiovascular/Respiratory: regular rate, rhythm, no M/R/G, normal peripheral pulses - bilateral Upper extremities good radiol pulses Abdominal Exam: non-tender, other - protuberant, obese Back Exam: normal inspection, no vertebral tenderness Shoulder Exam: bone tenderness, deformity, limited ROM, swelling Neuro/Tendon: normal sensation - no sensation sentinal's patch, responds to pain Mental Status: alert, other - unsure of orientation, has had fentanyl Progress - Progress Progress: 12/22/19 16:04 spiral fracture started midshaft R humerus a, extending towar humeral head, no dislocation 12/22/19 16:24 EKG: NSR rate 78, 1st degree block, no AFSHIN, QTc 453 12/22/19 17:18 splint check: coaptation splint applied, brisk cap refill, able to move fingers Departure - Departure Clinical Impression: Fracture, humerus closed, shaft Time of Disposition: 17:21 Disposition: Discharge to SNF Condition: Fair Departure Forms: ED Discharge - Pt. Copy, Patient Portal Self Enrollment Instructions: DI for Humeral Fracture Referrals: KALINA HALL MD [Primary Care Provider] - 1-2 Weeks Prescriptions: Acetaminophen W/ Codeine [Tylenol W/ CODEINE #3] 1 ea PO Q6HR PRN #20 PRN Reason: Moderate To Severe Pain Home Medications: Ambulatory Orders Atorvastatin Calcium [Lipitor] 20 mg PO BEDTIME 06/16/15 Fenofibrate [Tricor] 134 mg PO BEDTIME 06/16/15 Meclizine HCl 50 mg PO BEDTIME 06/16/15 Tiotropium [place] Monohydrate [Spiriva Handihaler] 18 mcg IN DAILY 06/16/15 Albuterol Sulfate Nebs [Proventil Nebs] 2.5 mg NEB RTQID #0 vial 07/22/15 Aspirin [Aspirin Childrens] 81 mg PO DAILY #0 07/22/15 Docusate Sodium [Colace] 100 mg PO DAILY 02/26/17 Gabapentin [Neurontin] 300 mg PO BEDTIME 02/26/17 Insulin Glargine [Toujeo Solostar] 42 unit SC BID 02/26/17 Insulin Regular (Human) [Novolin R] 17 unit SC TIDFD #0 03/03/17 Arformoterol Tartrate Nebs [Brovana Nebs] 1 inh INH BID 09/26/19 Calcium 600 mg PO BID 09/26/19 Pantoprazole Sodium 40 mg PO DAILY 09/26/19 Acetaminophen [Acetaminophen Extra Stren] 500 mg PO Q6H PRN 11/26/19 Ascorbic Acid [Vitamin C 500 mg] 1 tab PO DAILY 11/26/19 Promethazine HCl 25 mg PO Q6H PRN 11/26/19 Furosemide 40 mg PO DAILY 30 Days #30 tab 11/30/19 Losartan Potassium [Cozaar] 100 mg PO DAILY 30 Days #30 tab 11/30/19 Insulin Regular (Human) [Novolin R] See Protocol SC AC 12/10/19 Nystatin Powder 1 applic TOP BID 12/10/19 Acetaminophen W/ Codeine [Tylenol W/ CODEINE #3] 1 ea PO Q6HR PRN #20 12/22/19
--- NOTE | 2019-12-22 16:33 | RAD ---
EXAM DESCRIPTION: Chest,1 View CLINICAL HISTORY:79 years Male, fall Comparison: December 10, 2019 FINDINGS: No focal lung consolidation. No pleural effusion. No pneumothorax. Cardiac and mediastinal silhouette is unremarkable. Aortic calcifications. No acute osseous abnormality. Soft tissues are unremarkable. IMPRESSION: No acute findings. No focal lung consolidation. Electronically signed by: Per Negrete MD 12/22/2019 4:18 PM CDT
--- NOTE | 2019-12-22 16:34 | RAD ---
EXAM DESCRIPTION: Left humerus, 2 radiographs CLINICAL HISTORY: Fall injury. Pain and deformity FINDINGS/ IMPRESSION: Osteopenia Complex spiral oblique fracture of the humerus. Angulated displaced oblique fracture mid humeral shaft with lateral angulation and cortical offset up to 12 mm. 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
[2019-12-22 17:35] VITALS: BP 110/70; O2SAT 98
[2019-12-22 17:56] VITALS: TEMP 97.1
== END 2019-12-22 17:43 ==
LOC: ER 15:14
DX: S42.341A Displaced spiral fracture of shaft of humerus, right arm, initial encounter for closed fracture (principal); F44.9 Dissociative and conversion disorder, unspecified; I50.9 Heart failure, unspecified; I25.2 Old myocardial infarction; J44.9 Chronic obstructive pulmonary disease, unspecified; F17.200 Nicotine dependence, unspecified, uncomplicated; Z79.899 Other long term (current) drug therapy; Z79.82 Long term (current) use of aspirin; Z79.4 Long term (current) use of insulin; X58.XXXA Exposure to other specified factors, initial encounter; Y92.9 Unspecified place or not applicable
CPT/HCPCS: 71045; 73060; 80053; 85025; 93005; A4216